=== PATIENT | female | born 1980 | race Caucasian/White ===

== ENCOUNTER → 2019-11-16 08:31 | Outpatient (BNVA) | payer BC, SELFPAY | PROVIDERS: Family Provider Nurse Practitioner Family; Visit Provider Obstetrics & Gynecology | DX: Z32.01 Encounter for pregnancy test, result positive (principal) | CPT/HCPCS: 81025 ==

== ENCOUNTER → 2019-12-26 09:18 | Outpatient (BNVA) | payer BC, MEDICAID, SELFPAY | PROVIDERS: Family Provider Nurse Practitioner Family; Visit Provider Obstetrics & Gynecology | DX: O09.899 Supervision of other high risk pregnancies, unspecified trimester (principal); Z3A.10 10 weeks gestation of pregnancy; O10.919 Unspecified pre-existing hypertension complicating pregnancy, unspecified trimester; O99.331 Smoking (tobacco) complicating pregnancy, first trimester; O09.521 Supervision of elderly multigravida, first trimester | CPT/HCPCS: 80053; 80307; 83036; 84315; 85027; 86592; 86762; 86803; 86850; 86900; 87340; 87806 ==

== ENCOUNTER → 2020-01-06 14:35 | Outpatient (BNVA) | payer BC, MEDICAID, SELFPAY | PROVIDERS: Family Provider Nurse Practitioner Family; Visit Provider Obstetrics & Gynecology | DX: O09.91 Supervision of high risk pregnancy, unspecified, first trimester (principal); O09.899 Supervision of other high risk pregnancies, unspecified trimester; O28.0 Abnormal hematological finding on antenatal screening of mother; O28.5 Abnormal chromosomal and genetic finding on antenatal screening of mother | CPT/HCPCS: 84315; 87491; 87591; 88175 ==

== ENCOUNTER → 2020-02-09 00:01 | Outpatient (BNVA) | payer BC, MEDICAID, SELFPAY | PROVIDERS: Family Provider Nurse Practitioner Family; Visit Provider Nurse Practitioner Women's Health | DX: O10.919 Unspecified pre-existing hypertension complicating pregnancy, unspecified trimester (principal) | CPT/HCPCS: 84156 ==

== ENCOUNTER → 2020-03-07 16:14 | Outpatient (BNVA) | payer BC, MEDICAID, SELFPAY | PROVIDERS: Family Provider Nurse Practitioner Family; Visit Provider Obstetrics & Gynecology | DX: Z36.89 Encounter for other specified antenatal screening (principal) | CPT/HCPCS: 76805 ==

== ENCOUNTER → 2020-03-20 07:50 | Outpatient (BNVA) | payer BC, MEDICAID, SELFPAY | PROVIDERS: Family Provider Nurse Practitioner Family; Visit Provider Obstetrics & Gynecology | DX: O09.899 Supervision of other high risk pregnancies, unspecified trimester (principal) | CPT/HCPCS: 81000 ==

== ENCOUNTER 2020-03-21 16:00 | Outpatient (CLI) | payer BC, MEDICAID, SELFPAY ==
[2020-03-21 16:30] VITALS: RESP 20; TEMP 36.3; BMI 37.3
[2020-03-21] MEDS: terbutaline 1 mg/mL INJ 0.25 MG SUBCUT (16:48)
[2020-03-21 16:51] LABS: Bilirubin Urine Neg (Negative); Blood Urine Neg (Negative); Glucose Urine UA Norm (Normal); Ketones Urine Negative (Negative); Leukocyte Esterase Urine Negative (Negative); Nitrate Urine Negative (Negative); Protein Urine Neg (Negative); Urine Appearance SL Hazy (CLEAR); Urine Color Yellow (Yellow); Urobilinogen Urine Neg (Negative); pH Urine 6 (5-7)
[2020-03-21 16:52] LABS: Add Urine Culture? No; Bacteria Urine 2+ /hpf; Mucus Urine 1+ /hpf; WBC Urine 0-4 /hpf (0-5)
[2020-03-21 17:15] VITALS: BP 139/69; RESP 20; TEMP 36.3
== END 2020-03-21 17:20 | disposition home or self-care (01) ==
LOC: OPOB 16:13 → OBGYN 17:14
PROVIDERS: PCP Pharmacist; Visit Provider Obstetrics & Gynecology
DX: O26.899 Other specified pregnancy related conditions, unspecified trimester (principal); Z3A.00 Weeks of gestation of pregnancy not specified; R10.9 Unspecified abdominal pain
CPT/HCPCS: 81001; 87086; 96372; 99211; J3105

== ENCOUNTER → 2020-03-22 08:44 | Outpatient (BNVA) | payer BC, MEDICAID, SELFPAY | PROVIDERS: Family Provider Nurse Practitioner Family; Visit Provider Psychiatry & Neurology Psychiatry | DX: F33.1 Major depressive disorder, recurrent, moderate (principal); F41.1 Generalized anxiety disorder; F17.200 Nicotine dependence, unspecified, uncomplicated | CPT/HCPCS: 99204 ==

== ENCOUNTER → 2020-04-03 07:56 | Outpatient (BNVA) | payer BC, MEDICAID, SELFPAY | PROVIDERS: Family Provider Nurse Practitioner Family; Visit Provider Obstetrics & Gynecology | DX: O09.899 Supervision of other high risk pregnancies, unspecified trimester (principal) | CPT/HCPCS: 82950; 84315 ==

== ENCOUNTER → 2020-04-19 08:16 | Outpatient (BNVA) | payer BC, MEDICAID, SELFPAY | PROVIDERS: Family Provider Nurse Practitioner Family; Visit Provider Psychiatry & Neurology Psychiatry | DX: F41.1 Generalized anxiety disorder (principal); F33.1 Major depressive disorder, recurrent, moderate | CPT/HCPCS: 99213 ==

== ENCOUNTER → 2020-04-20 08:24 | Outpatient (BNVA) | payer BC, MEDICAID, SELFPAY | PROVIDERS: Family Provider Nurse Practitioner Family; Visit Provider Obstetrics & Gynecology | DX: R73.09 Other abnormal glucose (principal) | CPT/HCPCS: 82951; 82952 ==

== ENCOUNTER → 2020-04-24 08:55 | Outpatient (BNVA) | payer BC, MEDICAID, SELFPAY | PROVIDERS: Family Provider Nurse Practitioner Family; Visit Provider Obstetrics & Gynecology | DX: O09.899 Supervision of other high risk pregnancies, unspecified trimester (principal); Z3A.00 Weeks of gestation of pregnancy not specified | CPT/HCPCS: 84315; 85027 ==

== ENCOUNTER → 2020-05-04 09:55 | Outpatient (BNVA) | payer BC, MEDICAID, SELFPAY | PROVIDERS: Family Provider Nurse Practitioner Family; Visit Provider Obstetrics & Gynecology | DX: O09.899 Supervision of other high risk pregnancies, unspecified trimester (principal); O28.0 Abnormal hematological finding on antenatal screening of mother; O24.419 Gestational diabetes mellitus in pregnancy, unspecified control; R05 Cough | CPT/HCPCS: 84315; 87635 ==

== ENCOUNTER 2020-05-20 16:41 | Outpatient (CLI) | payer BC, MEDICAID, SELFPAY ==
[2020-05-20] VITALS (31 sets, daily range): BP systolic 0–150; BP diastolic 0–83; PULSE 77–101; RESP 20; TEMP 36.8; O2SAT 96–98; BMI 40.1
[2020-05-20 17:52] LABS: Nitrazine Paper, PH Negative
[2020-05-20] MEDS: NIFEdipine ER (24 hr) 30 mg Tablet PO (18:39)
[2020-05-20 19:08] LABS: Actim Prom Negative
[2020-05-20] MEDS: terbutaline 1 mg/mL INJ 0.25 MG SUBCUT ×2 (19:44→20:46)
[2020-05-20 20:09] LABS: Bilirubin Urine Neg (Negative); Blood Urine Neg (Negative); Glucose Urine UA Norm (Normal); Ketones Urine Negative (Negative); Leukocyte Esterase Urine Negative (Negative); Nitrate Urine Negative (Negative); Protein Urine Neg (Negative); Urine Appearance Clear (CLEAR); Urine Color Straw (Yellow); Urobilinogen Urine Norm (Negative)
[2020-05-20 20:15] LABS: Amorphous Sediment Urine 2+ /hpf; Bacteria Urine 1+ /hpf; Mucus Urine TRACE /hpf; Squamous Epithelial Cell Urine 0-4 /hpf (0-5)
[2020-05-20 20:16] LABS: Add Urine Culture? No
[2020-05-20] MEDS: acetaminophen 500 mg Tablet 1000 MG PO (20:46)
== END 2020-05-20 21:36 | disposition home or self-care (01) ==
LOC: OPOB 17:01 → OBGYN 17:03
PROVIDERS: Family Provider Nurse Practitioner Family; Visit Provider Obstetrics & Gynecology
DX: O26.899 Other specified pregnancy related conditions, unspecified trimester (principal); R10.9 Unspecified abdominal pain
CPT/HCPCS: 59025; 81001; 83986; 84112; 96372; 99211; J3105

== ENCOUNTER → 2020-06-04 15:42 | Outpatient (BNVA) | payer BC, MEDICAID, SELFPAY | PROVIDERS: Family Provider Nurse Practitioner Family; Visit Provider Obstetrics & Gynecology | DX: O09.893 Supervision of other high risk pregnancies, third trimester (principal); O28.0 Abnormal hematological finding on antenatal screening of mother; O24.410 Gestational diabetes mellitus in pregnancy, diet controlled; Z3A.33 33 weeks gestation of pregnancy | CPT/HCPCS: 76815; 84315 ==

== ENCOUNTER → 2020-06-05 16:07 | Outpatient (BNVA) | payer BC, MEDICAID, SELFPAY | PROVIDERS: Family Provider Nurse Practitioner Family; Visit Provider Emergency Medicine | DX: Z20.828 Contact with and (suspected) exposure to other viral communicable diseases (principal) | CPT/HCPCS: 87635 ==

== ENCOUNTER 2020-06-09 19:18 | Outpatient (CLI) | payer BC, MEDICAID, SELFPAY ==
[2020-06-09] VITALS (9 sets, daily range): BP systolic 124–155; BP diastolic 70–85; PULSE 80–92; RESP 16; BMI 40.0
[2020-06-09] MEDS: NIFEdipine 10 mg Capsule 20 MG PO (20:30)
[2020-06-09 22:17] LABS: Add Urine Microscopic? YES; Bilirubin Urine Neg (Negative); Blood Urine Neg (Negative); Glucose Urine UA Norm (Normal); Ketones Urine Negative (Negative); Leukocyte Esterase Urine Negative (Negative); Nitrate Urine Negative (Negative); Protein Urine Neg (Negative); Urine Appearance Turbid (CLEAR); Urine Color Yellow (Yellow); Urobilinogen Urine Norm (Negative); pH Urine 5 (5-7)
[2020-06-09 22:22] LABS: Bacteria Urine TRACE /hpf; RBC Urine 0-4 /hpf (0-2); Renal Epithelial Cells Urine 0-4 /hpf; Squamous Epithelial Cell Urine 25-40 /hpf (0-5); WBC Urine 0-4 /hpf (0-5)
[2020-06-09 22:23] LABS: Add Urine Culture? No
== END 2020-06-09 22:37 | disposition home or self-care (01) ==
LOC: OPOB 19:19 → OBGYN 22:26
PROVIDERS: Family Provider Nurse Practitioner Family; Visit Provider Obstetrics & Gynecology
DX: O26.899 Other specified pregnancy related conditions, unspecified trimester (principal); Z3A.00 Weeks of gestation of pregnancy not specified; R10.9 Unspecified abdominal pain
CPT/HCPCS: 36415; 59025; 81001; 99211

== ENCOUNTER → 2020-06-12 07:58 | Outpatient (BNVA) | payer BC, MEDICAID, SELFPAY | PROVIDERS: Family Provider Nurse Practitioner Family; Visit Provider Obstetrics & Gynecology | DX: O09.899 Supervision of other high risk pregnancies, unspecified trimester (principal); O28.0 Abnormal hematological finding on antenatal screening of mother; O24.410 Gestational diabetes mellitus in pregnancy, diet controlled; O40.3XX0 Polyhydramnios, third trimester, not applicable or unspecified; Z3A.00 Weeks of gestation of pregnancy not specified | CPT/HCPCS: 81000 ==

== ENCOUNTER → 2020-06-14 08:22 | Outpatient (BNVA) | payer BC, MEDICAID, SELFPAY | PROVIDERS: Family Provider Nurse Practitioner Family; Visit Provider Psychiatry & Neurology Psychiatry | DX: F33.1 Major depressive disorder, recurrent, moderate (principal); F41.1 Generalized anxiety disorder; F17.200 Nicotine dependence, unspecified, uncomplicated | CPT/HCPCS: 99213 ==

== ENCOUNTER 2020-06-16 08:30 | Inpatient (IN) | payer BC, MEDICAID, SELFPAY ==
[2020-06-16] VITALS (56 sets, daily range): BP systolic 0–181; BP diastolic 0–98; PULSE 71–113; RESP 17; TEMP 36.7–36.9; O2SAT 96–97; BMI 40.1
--- NOTE | 2020-06-16 08:00 | USR_ITS ---
PROCEDURE INFORMATION: Exam: US , Limited Exam date and time: 06/16/2020 8:03 AM Age: 39 years old Clinical indication: Lmp or gestational age (in weeks): 35 wks 4 days; Other: Unable to find heart tones; ; Patient HX: Trisomy 18 fetus; Additional info: Unable to find heartones TECHNIQUE: Imaging protocol: Real-time ultrasound of the maternal uterus with image documentation. Exam focused on the clinical indication. COMPARISON: US OB limited [id number] 06/04/2020 3:47 PM FINDINGS: Gestation: Intrauterine gestation. heart rate: No heart motion is seen. Presentation: There is a single intrauterine fetus in the vertex position. Placenta: The placenta is present in the posterior fundus. US/US OB limited [id number] IMPRESSION: There is a single intrauterine fetus with no heart motion which is consistent with demise.
--- NOTE | 2020-06-16 09:30 | PC.NURSE ---
Pt and all belonging transferred to room 209 to proceed with the induction process. Pt oriented to room, belongings placed in the closet and made sure pt was comfortable. Pt denies any wants or needs at this time, will continue to monitor.
[2020-06-16] MEDS: acetaminophen 325 mg Tablet 650 MG PO (10:15)
[2020-06-16] MEDS: miSOPROStol 100 mcg tablet 25 MCG VAGINAL ×2 (10:17→23:18)
[2020-06-16 10:43] LABS: Basophils % 0.4 %; Eosinophils # 0.1 10^3/uL (0.0-0.8); Eosinophils % 0.6 %; Hematocrit 38.3 % (37.0-47.0); Lymphocytes # 1.9 10^3/uL (0.8-4.8); Lymphocytes % 17.7 %; Mean Corpuscular HGB Conc 33.9 g/dL (30.0-36.0); Mean Corpuscular Hemoglobin 30.4 pg (28.0-34.0); Mean Corpuscular Volume 89.7 fL (81-99); Mean Platelet Volume 10.9 fL (7.4-10.4); Monocytes # 0.6 10^3/uL (0.2-0.9); Monocytes % 5.2 %; Neutrophils # 8.25 10^3/uL (1.8-7.7); Neutrophils % 75.9 %; Nucleated Red Blood Cells % 0 %; Platelet Count 202 10^3/cmm (130-400); Red Blood Count 4.27 10^6/uL (4.1-5.3); Red Cell Distribution Width 13.2 % (12.1-15.1); White Blood Count 10.9 10^3/uL (4.0-10.0)
[2020-06-16] MEDS: labetalol 5 mg/mL SDV 20mL 20 MG IVP (12:02)
[2020-06-16 12:34] LABS: Alanine Aminotransferase 16 U/L (0-33); Albumin Level 3.5 g/dL (3.5-5.2); Alkaline Phosphatase 127 IU/L (35-105); Anion Gap 15.9 (5-19); Aspartate Amino Transferase 17 U/L (0-32); Blood Urea Nitrogen 5 mg/dL (6-20); Calcium 8.9 mg/dL (8.5-10.5); Carbon Dioxide 20 mmol/L (22-29); Chloride 103 mmol/L (98-107); Glomerular Filtration Rate 178.6 mL/min (90-130); Glucose 111 mg/dL (65-115); Osmolality Calculated 278 mOsm/kg (285-295); Potassium 3.9 mmol/L (3.5-5.1); Sodium 135 mmol/L (136-145); Total Bilirubin 0.2 mg/dL (0.15-1.2); Total Protein 6.5 g/dL (6.6-8.7); Uric Acid 3.3 mg/dL (2.4-5.7)
[2020-06-16 12:59] LABS: Urine Creatinine 103 mg/dL (28-217); Urine Protein Random 9 mg/dL
[2020-06-16 13:01] LABS: Add Urine Microscopic? NO
[2020-06-16] MEDS: labetalol 5 mg/mL SDV 20mL 40 MG IVP ×2 (13:08→18:13)
[2020-06-16 13:09] LABS: Bilirubin Urine Neg (Negative); Blood Urine Neg (Negative); Glucose Urine UA Norm (Normal); Ketones Urine Negative (Negative); Leukocyte Esterase Urine Negative (Negative); Nitrate Urine Negative (Negative); Protein Urine Neg (Negative); Specific Gravity, Urine 1.015 (1.005-1.030); Urine Appearance Clear (CLEAR); Urine Color Yellow (Yellow); Urobilinogen Urine 1 mg/dL (Negative); pH Urine 6.5 (5-7)
[2020-06-16 13:13] LABS: UPRO/UCREAT Ratio 0.09 mg/mg CR
[2020-06-16] MEDS: labetalol 200 mg Tablet 50 MG PO (14:27)
[2020-06-16] MEDS: dextrose 5%-lactated ringers 1,000 ML 125 ML IV (14:35)
[2020-06-16] MEDS: oxytocin 30 UNIT/500 ML BAG IV (14:36)
[2020-06-16] MEDS: fentaNYL 50 mcg/mL INJ 2mL IV (18:12)
[2020-06-16] MEDS: labetalol 5 mg/mL SDV 20mL 60 MG IVP (19:06)
--- NOTE | 2020-06-16 19:48 | PM.OBGYHP ---
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 Vo is 39-year-old 2 para 1-0-0-1 at 35 weeks and 4 days who presented to labor and delivery on 06/16/2020 with reports of no movement for the last 3 days. course was complicated by abnormal chromosomal testing for trisomy 18 and patient has been followed up with maternal- medicine with the plan for her to be induced in [place] at 37 weeks. She had been seen 2 days before and everything checked out normal and it was known that the fetus had multiple congenital anomalies. She was also for gestational diabetic managed with Metformin and chronic hypertensive on labetalol. When she presented to labor and delivery on 06/16/2020 bedside ultrasound did not see any activity and Doppler was unable to pick this up as well. Ultrasound officially was done and was consistent with absent cardiac activity on color flow Doppler and M-mode and diagnosis of intrauterine was made. Patient was counseled and she was kind of prepared for this as this had always been a possibility knowing that she had a fetus with trisomy 18. Present Details : 2 Para: 1 Date of Last Menstrual Period: 10/11/19 Calculated Date of Delivery: 07/17/20 Gestational Age Based on Last Menstrual Period: 36 Labs Rubella: Immune RPR: Negative GBS: Unknown Review of Systems General: Reports: 10 or more systems reviewed and unremarkable except in HPI and below Const: Denies: fever(s), chills, change in appetite, change in weight, fatigue, malaise or change in sleep pattern Eyes: Denies: change in vision, eye discomfort, eye discharge or seeing flashes ENMT: Denies: throat pain, odynophagia, hoarseness, bleeding gums, ear discharge, nasal discharge or nasal congestion Card: Denies: chest pain, irregular heart rhythm, edema, swelling of feet/ankles, dyspnea on exertion or leg pain with exertion Resp: Denies: dyspnea, productive cough, wheezing or chest congestion GI: Denies: abdominal pain, nausea, vomiting, heartburn, diarrhea, constipation, change in bowel habits or hematochezia : Denies: flank pain, dysuria, urinary frequency, urinary urgency, urinary incontinence, genital lesions, vaginal odor, vaginal bleeding, vaginal discharge, dysmenorrhea, change in menstrual flow, prolapse symptoms, dyspareunia or sexual dysfunction Musc: Denies: neck pain, back pain, joint pain, joint swelling or muscle cramps Skin/Breast: Denies: rash, pruritus, breast tenderness, nipple discharge or breast mass Neuro: Denies: headache(s), numbness in extremities or seizure-like activity Psych: Denies: anxiety, depression, mood swings or change in appetite Endo: Denies: cold intolerance, flushing, hot flashes or change in body appearance Dany/Lymph: Denies: easy bruising, easy bleeding or enlarged lymph nodes All/Imm: Denies: urticaria, tongue swelling, acute wheezing or itchy eyes Medications/Allergies Home Medications Medication Instructions Recorded Confirmed Last Taken Type prenat.vits,faith,bxz-wfaj-bywxf 1 tab PO DAILY 12/13/19 06/20/20 06/14/20 07:00 History docusate sodium 100 mg PO BID PRN #30 cap 06/18/20 06/20/20 Unknown Rx ibuprofen 800 mg PO Q8H #30 tab 06/18/20 06/20/20 Unknown Rx alprazolam 0.25 mg tablet 0.25 mg PO .every 12 hours PRN #20 06/20/20 06/20/20 Unknown Rx tab labetalol 100 mg tablet 50 mg PO DAILY tab 06/20/20 06/20/20 Unknown History sertraline 50 mg tablet 100 mg PO DAILY #30 tab 06/20/20 06/20/20 Unknown Rx Allergies Allergy/AdvReac Type Severity Reaction Status Date / Time No Known Allergies Allergy Verified 06/13/20 12:10 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 PFSH: Medical History Hypertension Surgical History No pertinent past surgical history Family History Grandmother Diabetes Paternal grandmother Maternal grandmother Heart disease Paternal grandmother Grandfather Diabetes Paternal grandfather Maternal grandfather Heart disease Paternal grandfather Father Hypertension Heart disease Hyperlipidemia Family/Other Heart disease Maternal uncle Denies family history of Colon cancer Ovarian cancer Breast cancer Family history of thyroid problem Uterine cancer Stroke Social History Smoking and tobacco status: current every day smoker cigarettes Packs smoked per day: 0.5 Years cigarettes smoked: 20 Quit status (tobacco): has tried quititng Number of times tried to quit tobacco: 2 Second hand smoke exposure: No Alcohol intake: never Other Female Reproductive History: Hx Age of Menarche: 12 Duration of menses: 3-5 days Date of Last Menstrual Period: 10/11/19 Cycle Length: every 28-30 days Menstrual flow: normal/abnormal: normal History History History 2 Term 1 Miscarriages/Ectopic 0 1 Living Children 1 Other History: 1--->[07/07/2013] 8# 20--vaginal, epidural, 39 weeks, was induced a week early because the doctor was concerned about her BP, [facility] [place] [place] baby girl, Zakia 2---> IUFD at 35 weeks-baby boy Bonilla with trisomy 18 Care LAURA Calculator Estimated Delivery Date Method Current WG Current Estimate 07/17/20 LMP (Certain) 36w 2d Expected Delivery Route/Plan Vaginal Specific Issues/Plans AMA CHRONIC HTN SMOKER Vitals/I&O/Wt Last Vital Signs Temp 98.4 F 06/16/20 18:30 Pulse 80 06/16/20 19:39 Resp 17 06/16/20 18:12 BP 154/76 06/16/20 19:39 Pulse Ox 96 06/16/20 08:26 06/16/20 06/16/20 06/16/20 06:59 14:59 22:59 Intake Total 0.233 / 0.233 19.4 / 19.633 Balance 0.233 / 0.233 ..633 Weight last 48 hrs Weight 249 lb Physical Exam Narrative: EXAM NARRATIVE: General: well developed, well nourished, upset with the news Neuro/Psych: alert, oriented to time, place and person. Neck: No thyromegaly Heart: S1-S2 heard, regular rate and rhythm. Lungs: Clear to auscultation bilaterally. Breast: Deferred Abdomen: Soft, obese, gravid, nontender Legs: No pedal edema no calf tenderness. Negative Homans sign Back: No CVA tenderness Skin: Normal over abdomen External genitalia: Appears normal, no lesions, normal hair Urethral meatus: Normal size, normal location Urethra: Nontender, no masses Bladder: Nontender Vagina: Appears normal Cervix: Closed thick and high Uterus: Gravid Adnexa: Not palpable Perineum/anus: Intact Rectum: Deferred Data : 06/18/20 04:56 06/16/20 11:50 A&P Assessment and plan (1) Intrauterine in : -Discussed with Ms. Vo that there was no heartbeat consistent with demise. She is understandably upset but was expecting the possibility of this given that the fetus has trisomy 18. Discussed I would recommend delivery with induction. Discussed that her cervix is unfavorable and will likely require long induction. Her blood pressures a little higher now because she is upset and we will do labs to rule out preeclampsia as well. We will plan on starting induction with Cytotec and switching to Pitocin once cervix is more favorable. Induction process reviewed with patient. Discussed possibility of although this is going to be done only if there is no other choice. -Discussed pain management during the induction process. Emotional support provided. -Admit patient to labor and delivery and begin induction. Status: Acute Attestations Medical Necessity Statement*: Needs to stay to deliver and recover from delivery-probably 3-4 midnights Coding Level of Care Code Acute Public Service Representative for Seth Bernal Diagnoses Intrauterine in [id number]
[2020-06-17] VITALS (101 sets, daily range): BP systolic 0–203; BP diastolic 0–104; PULSE 72–110; RESP 17–18; TEMP 36.6–37.7; O2SAT 96–97
[2020-06-17] MEDS: miSOPROStol 100 mcg tablet 25 MCG VAGINAL (03:30)
[2020-06-17] MEDS: fentaNYL 50 mcg/mL INJ 2mL IV ×3 (03:33→09:28)
[2020-06-17] MEDS: labetalol 200 mg Tablet 50 MG PO (08:11)
[2020-06-17] MEDS: ondansetron 2 mg/ML SDV 2 mL 4 MG IVP (09:22)
[2020-06-17] MEDS: lactated ringers 1,000 ML 999 ML IV ×2 (09:22→10:40)
--- NOTE | 2020-06-17 10:30 | P.ANESASSM_ITS ---
Pre-Anesthetic Assessment Pre-Anesthetic Assessment: Height/Weight: Height 1.68 m Weight 112.945 kg Temp Pulse Resp BP Pulse Ox 97.9 F 86 17 154/80 96 06/17/20 07:20 06/17/20 10:54 06/17/20 09:28 06/17/20 10:54 06/17/20 10:49 Preop Diagnosis: IUP Proposed Procedure: labor epidural Was Beta Daonis taken within 24 hours: Yes Social: Social History: Tobacco Exam: Pre-Anes Outpt Exam: alert, oriented x 3, clear to auscultation bilaterally and regular rate & rhythm Airway: Submandibular: WNL Cervical ROM: WNL MP: 2 History/ROS: No significant history except as noted Pulmonary: Pulmonary: None reported CV/HEM: CV/HEM: HTN : : None reported Hepatic: Hepatic: None reported GI: GI: GERD Metabolic: Metabolic: DM ( induced) Musc/skel: Musc/skel: None reported Neuropsych: Neuropsych: Anxiety and Depression Anesthetic Plan: ASA status: 2 Anesthesia: Anesthesia Evaluation Risk of > 500 ml blood loss (7ml/kg in children): No Meds/Allergies Current Medications: Current Medications Generic Name Dose Route Start Last Admin Trade Name Freq PRN Reason Stop Dose Admin Acetaminophen 650 mg 06/16/20 08:51 06/16/20 10:15 Acetaminophen 32 5 Mg Tablet PO 650 mg Q6H PRN Administration Mild pain or temp > 100.4 Fentanyl 25 - 100 mcg 06/16/20 08:51 06/17/20 09:28 Fentanyl 50 Mcg/ Ml Inj 2ml IV 100 mcg Q1H PRN Administration SEVERE PAIN Dextrose/Lactated Ringer's 1,000 mls @ 125 m ls/hr 06/16/20 09:00 06/16/20 14:35 Dextrose 5%-Lact ated Ringers IV 125 mls/hr .Q8H CONRAD Administration Lactated Ringer's 1,000 mls @ 999 m ls/hr 06/16/20 08:51 06/17/20 10:40 Lactated Ringers IV 999 mls/hr .Q1H1M PRN Administration See label comment s Oxytocin 30 unit in 500 ml s @ 1 mls/hr 06/16/20 14:15 06/17/20 10:12 Pitocin IV 8 milliunit/min .Q24H CONRAD 8 mls/hr Titration Protocol 1 MILLIUNIT/MIN Labetalol HCl 20 mg 06/16/20 11:47 06/16/20 12:02 Labetalol 5 Mg/M l Sdv 20ml IVP 20 mg PRN PRN Administration HYPERTENSION Protocol Labetalol HCl 40 mg 06/16/20 11:47 06/16/20 18:13 Labetalol 5 Mg/M l Sdv 20ml IVP 40 mg PRN PRN Administration HYPERTENSION Protocol Misoprostol 25 mcg 06/16/20 23:08 06/17/20 03:30 Misoprostol 100 Mcg Tablet VAGINAL 25 mcg Q4H PRN Administration induction Ondansetron HCl 4 mg 06/16/20 08:51 06/17/20 09:22 Ondansetron 2 Mg /Ml Sdv 2 Ml IVP 4 mg Q4H PRN Administration NAUSEA AND VOMITI NG PFSH Anesthesia PFSH: Medical History Hypertension Surgical History No pertinent past surgical history Family History Grandmother Diabetes Paternal grandmother Maternal grandmother Heart disease Paternal grandmother Grandfather Diabetes Paternal grandfather Maternal grandfather Heart disease Paternal grandfather Father Hypertension Heart disease Hyperlipidemia Family/Other Heart disease Maternal uncle Denies family history of Colon cancer Ovarian cancer Breast cancer Family history of thyroid problem Uterine cancer Stroke Social History (Updated 06/12/20 @ 08:04 by Ginette Quezada RN) Smoking and tobacco status: current every day smoker cigarettes Packs smoked per day: 0.5 Years cigarettes smoked: 20 Quit status (tobacco): has tried quititng Number of times tried to quit tobacco: 2 Second hand smoke exposure: No Alcohol intake: never Female Reproductive History: Date of last menstrual period: 10/11/19 : 2 Para: 1 Spontaneous abortions: No Data Anesthesia CBC & Chem 7: 06/16/20 09:35 06/16/20 11:50 Other Labs: Laboratory Results - last 48 hr 06/16/20 06/16/20 06/16/20 09:35 09:35 11:50 WBC 10.9 H RBC 4.27 Hgb 13.0 Hct 38.3 MCV 89.7 MCH 30.4 MCHC 33.9 RDW 13.2 Plt Count 202 MPV 10.9 H Neut % (Auto) 75.9 Lymph % (Auto) 17.7 [place] % (Auto) 5.2 Eos % (Auto) 0.6 Baso % (Auto) 0.4 Neut # (Auto) 8.25 H Lymph # (Auto) 1.9 [place] # (Auto) 0.6 Eos # (Auto) 0.1 Baso # (Auto) 0.0 Nucleated RBC % (auto) 0 Nucleated RBCs # 0.0 Sodium Potassium Chloride Carbon Dioxide Anion Gap BUN Creatinine GFR Calculation Glucose Calculated Osmolality Uric Acid Calcium Total Bilirubin AST ALT Alkaline Phosphatase Total Protein Albumin Globulin Urine Color Urine Appearance Urine pH Ur Specific [place] Urine Protein Urine Glucose (UA) Urine Ketones Urine Blood Urine Nitrate Urine Bilirubin Urine Urobilinogen Ur Leukocyte Esterase U Random Total Protein 9 Urine Creatinine 103 Protein/Creatinin Ratio 0.09 Blood Type O Positive Rho(D) Type Positive Antibody Screen Negative 06/16/20 06/16/20 11:50 11:50 WBC RBC Hgb Hct MCV MCH MCHC RDW Plt Count MPV Neut % (Auto) Lymph % (Auto) [place] % (Auto) Eos % (Auto) Baso % (Auto) Neut # (Auto) Lymph # (Auto) [place] # (Auto) Eos # (Auto) Baso # (Auto) Nucleated RBC % (auto) Nucleated RBCs # Sodium 135 L Potassium 3.9 Chloride 103 Carbon Dioxide 20 L Anion Gap 15.9 BUN 5 L Creatinine 0.4 L GFR Calculation 178.6 H Glucose 111 Calculated Osmolality 278 L Uric Acid 3.3 Calcium 8.9 Total Bilirubin 0.2 AST 17 ALT 16 Alkaline Phosphatase 127 H Total Protein 6.5 L Albumin 3.5 Globulin 3.0 Urine Color Yellow Urine Appearance Clear Urine pH 6.5 Ur Specific [place] 1.015 Urine Protein Neg Urine Glucose (UA) Norm Urine Ketones Negative Urine Blood Neg Urine Nitrate Negative Urine Bilirubin Neg Urine Urobilinogen 1 H Ur Leukocyte Esterase Negative U Random Total Protein Urine Creatinine Protein/Creatinin Ratio Blood Type Rho(D) Type Antibody Screen Cardiac Studies: No Data to Display
--- NOTE | 2020-06-17 11:07 | ANES.PROC ---
Anesthesia Procedures Procedure/Date: 06/17/20 Epidural: Time Out Performed: Yes Consents Signed: Procedure Consent Consent: requested by attending/covering physician Lumbar Level: L3-L4 Epidural procedure: sterile prep of area, 1% lidocaine to numb the area, 18 g needle, negative for paresthesia passed, neg for paresthesia, test dose given, 1.5% xylocaine 1:200k epi (5ml), placed PCEA, no systemic response, sterile dressing applied, L.U.D. no apparent complications and 0.2% Ropiavacaine @ mls/hr (13)
--- NOTE | 2020-06-17 17:23 | PM.DELIVERY ---
Delivery Note: Date of delivery: June 17, 2020 - PRE-DELIVERY DIAGNOSIS: 39-year-old 2 para 1-0-0-1 at 35 weeks and 4 days gestation Intrauterine Advanced maternal age Fetus with trisomy 18 Gestational diabetes Polyhydramnios Anxiety and depression on medication Chronic hypertension on labetalol POST-DELIVERY DIAGNOSIS: Vaginal delivery on 06/17/2020 Chronic hypertension on medication Anxiety and depression PROCEDURE: Vaginal delivery on 06/17/2020 ANESTHESIA: Epidural anesthesia DELIVERING PHYSICIAN: Johann Baca FACOG PRE-DELIVERY COURSE: Ms. Vo is 39-year-old 2 para 1-0-0-1 at 35 weeks and 4 days who presented to labor and delivery on 06/16/2020 with reports of no movement for the last 3 days. course was complicated by abnormal chromosomal testing for trisomy 18 and patient has been followed up with maternal- medicine with the plan for her to be induced in [place] at 37 weeks. She had been seen 2 days before and everything checked out normal and it was known that the fetus had multiple congenital anomalies. She was also for gestational diabetic managed with Metformin and chronic hypertensive on labetalol. When she presented to labor and delivery on 06/16/2020 bedside ultrasound did not see any activity and Doppler was unable to pick this up as well. Ultrasound officially was done and was consistent with absent cardiac activity on color flow Doppler and M-mode and diagnosis of intrauterine was made. Patient was counseled and she was kind of prepared for this as this had always been a possibility knowing that she had a fetus with trisomy 18. Cervix was unfavorable closed thick and high and fetus was in cephalic presentation. Induction was started with Cytotec and she received 2 doses of Cytotec. She made minimal cervical change to tight 2 cm, 30% effaced. She was started on Pitocin at about 3 PM which was titrated to maximum of 15 mIU and during this time she was very uncomfortable however declined any pain medication to be given multiple doses of IV labetalol to help with pain relief. Pitocin was turned off at 8 PM as she made minimal to no cervical change. She was given a therapeutic rest. She seemed to be coping well thus far. Induction was started again at 11 PM on 06/16/2020 and she received 2 more doses of Cytotec overnight and made cervical change to 2 cm, 60% soft and -4 station. Pitocin was started at 7:30 AM this morning and titrated to maximum of 15 mIU and with this she started to make cervical change. She was uncomfortable and epidural was placed as fentanyl did not help much with her pain. At about 3 PM she was noted to be 3 to 4 cm, 80% and -4 station. Artificial rupture of membranes was performed at about 3:20 with blood-tinged fluid at which time she was 5 cm, 80% and -4 station. She progressed rapidly and about an hour later was fully dilated and +2 station feeling pressure wanting to push. DELIVERY NOTE: She was set up in lithotomy position and was pushing effectively. She was noted to be +3 station and continued pushing well. The head delivered in OA position, no nuchal cord was present. The shoulders and rest of the body followed with her next push the baby was placed on mother's abdomen and she was allowed to cut the cord. There were no signs of life and the skin was macerated and peeling. Obviously noted was bilateral cleft lip deformities. The placenta delivered spontaneously intact with membranes and was discarded. The fundus was noted to be firm and well contracted. The vagina and cervix were inspected and no cervical or sulcal lacerations were noted. The perineum was intact Baby boyBonilla born at ----on 06/17/2020 with 0/0, weighing 4 pounds 1.5 ounces, 1860 grams, 17 inches long. Placenta was delivered spontaneously intact with membranes and was sent to pathology. Cotyledons were intact , centrally inserted umbilical cord with 3 vessels noted. Charlton's jelly was excessive and cord was friable. Estimated blood loss 200 mL. Complications-none. Coding Level of Care Code Acute Cellular Plastics Cutter for Seth Bernal
[2020-06-17] MEDS: docusate sodium 100 mg Capsule PO (19:00)
[2020-06-17] MEDS: HYDROcodone-acetaminophen 5-325 mg Tablet PO (19:00)
[2020-06-17] MEDS: ibuprofen 800 mg tablet PO (20:03)
[2020-06-17] MEDS: labetalol 5 mg/mL SDV 20mL 20 MG IVP (20:03)
[2020-06-17] MEDS: labetalol 5 mg/mL SDV 20mL 40 MG IVP (20:39)
[2020-06-18] VITALS (9 sets, daily range): BP systolic 113–150; BP diastolic 58–84; PULSE 78–90; RESP 16–18; TEMP 36.4–36.9
[2020-06-18] MEDS: HYDROcodone-acetaminophen 5-325 mg Tablet PO (04:12)
[2020-06-18 05:07] LABS: Hematocrit 37.2 % (37.0-47.0); Hemoglobin 12.3 g/dL (11.5-15.3); Mean Corpuscular HGB Conc 33.1 g/dL (30.0-36.0); Mean Corpuscular Hemoglobin 30.5 pg (28.0-34.0); Mean Corpuscular Volume 92.3 fL (81-99); Mean Platelet Volume 10.5 fL (7.4-10.4); Platelet Count 179 10^3/cmm (130-400); Red Blood Count 4.03 10^6/uL (4.1-5.3); Red Cell Distribution Width 13.4 % (12.1-15.1); White Blood Count 11.7 10^3/uL (4.0-10.0)
[2020-06-18] MEDS: prenatal vitamin Capsule 1 CAP PO (10:08)
[2020-06-18] MEDS: ibuprofen 800 mg tablet PO (10:08)
[2020-06-18] MEDS: labetalol 200 mg Tablet 50 MG PO (10:09)
[2020-06-18] MEDS: docusate sodium 100 mg Capsule PO (10:09)
--- NOTE | 2020-06-18 14:27 | PM.DCS ---
Discharge Providers Date of Admission: 06/16/20 08:30 Date of Discharge: June 21, 2020 Attending Provider at Admission: Johann Smith MD Attending Provider at Discharge: Johann Smith MD Diagnoses at Discharge Discharge Diagnosis (1) Intrauterine in : Status: Acute Reason for Visit Reason for Visit: Absent Movement Brief History: PRE-DELIVERY DIAGNOSIS: 39-year-old 2 para 1-0-0-1 at 35 weeks and 4 days gestation Intrauterine Advanced maternal age Fetus with trisomy 18 Gestational diabetes Polyhydramnios Anxiety and depression on medication Chronic hypertension on labetalol POST-DELIVERY DIAGNOSIS: Vaginal delivery on 06/17/2020 Chronic hypertension on medication Anxiety and depression PROCEDURE: Vaginal delivery on 06/17/2020 ANESTHESIA: Epidural anesthesia DELIVERING PHYSICIAN: Johann Baca FACOG PRE-DELIVERY COURSE: Ms. Vo is 39-year-old 2 para 1-0-0-1 at 35 weeks and 4 days who presented to labor and delivery on 06/16/2020 with reports of no movement for the last 3 days. course was complicated by abnormal chromosomal testing for trisomy 18 and patient has been followed up with maternal- medicine with the plan for her to be induced in [place] at 37 weeks. She had been seen 2 days before and everything checked out normal and it was known that the fetus had multiple congenital anomalies. She was also for gestational diabetic managed with Metformin and chronic hypertensive on labetalol. When she presented to labor and delivery on 06/16/2020 bedside ultrasound did not see any activity and Doppler was unable to pick this up as well. Ultrasound officially was done and was consistent with absent cardiac activity on color flow Doppler and M-mode and diagnosis of intrauterine was made. Patient was counseled and she was kind of prepared for this as this had always been a possibility knowing that she had a fetus with trisomy 18. Cervix was unfavorable closed thick and high and fetus was in cephalic presentation. Induction was started with Cytotec and she received 2 doses of Cytotec. She made minimal cervical change to tight 2 cm, 30% effaced. She was started on Pitocin at about 3 PM which was titrated to maximum of 15 mIU and during this time she was very uncomfortable however declined any pain medication to be given multiple doses of IV labetalol to help with pain relief. Pitocin was turned off at 8 PM as she made minimal to no cervical change. She was given a therapeutic rest. She seemed to be coping well thus far. Induction was started again at 11 PM on 06/16/2020 and she received 2 more doses of Cytotec overnight and made cervical change to 2 cm, 60% soft and -4 station. Pitocin was started at 7:30 AM this morning and titrated to maximum of 15 mIU and with this she started to make cervical change. She was uncomfortable and epidural was placed as fentanyl did not help much with her pain. At about 3 PM she was noted to be 3 to 4 cm, 80% and -4 station. Artificial rupture of membranes was performed at about 3:20 with blood-tinged fluid at which time she was 5 cm, 80% and -4 station. She progressed rapidly and about an hour later was fully dilated and +2 station feeling pressure wanting to push. DELIVERY NOTE: She was set up in lithotomy position and was pushing effectively. She was noted to be +3 station and continued pushing well. The head delivered in OA position, no nuchal cord was present. The shoulders and rest of the body followed with her next push the baby was placed on mother's abdomen and she was allowed to cut the cord. There were no signs of life and the skin was macerated and peeling. Obviously noted was bilateral cleft lip deformities. The placenta delivered spontaneously intact with membranes and was discarded. The fundus was noted to be firm and well contracted. The vagina and cervix were inspected and no cervical or sulcal lacerations were noted. The perineum was intact Baby Bonilla constantino born at ----on 06/17/2020 with 0/0, weighing 4 pounds 1.5 ounces, 1860 grams, 17 inches long. Placenta was delivered spontaneously intact with membranes and was sent to pathology. Cotyledons were intact , centrally inserted umbilical cord with 3 vessels noted. [place]'s jelly was excessive and cord was friable. Estimated blood loss 200 mL. Complications-none. HOSPITAL COURSE: She underwent an uncomplicated vaginal delivery on 06/17/2020. She spent day 0 bonding with baby taking pictures and then she allowed the home to take the baby away. She declined autopsy or any testing as she states her testing was all done antepartum. She stated that she was doing okay. Her elevated blood pressure requiring IV labetalol and post day 0 as she was upset and crying. She was continued on p.o. labetalol while in the hospital. On day #1 she stated that she was doing okay and had minimal bleeding and pain and wanted to be discharged. She did not want to increase her depression medications and wanted to just continue the 50 mg of Zoloft as she felt that she had good family support and she denied suicidal/homicidal ideation. Blood pressure was not in the severe range and she was going to follow-up with me in 2 days with blood pressure log and to reassess mood. Emergency room precautions were reviewed. Prescription for Xanax provided to patient as needed. EXAM AT DISCHARGE: Gen.: No acute distress Heart: S1-S2 heard, regular rate and rhythm Lungs: Clear to auscultation bilaterally Abdomen: Soft, fundus firm below umbilicus, Legs: No calf tenderness, trace bilateral pitting pedal edema. CONDITION AT DISCHARGE: Stable Physical Exam Urinary Catheter Management^: Rubio: Cath Placed During This Visit: yes, but has since been removed by the nurse Reason for Continuing Indwelling Catheter: Not indwelling catheter Urinary Catheter Date of Insertion: 06/17/20 Urinary Catheter Time of Insertion: 11:12 Date Urinary Catheter Removed: 06/17/20 Time Urinary Catheter Discontinued: 16:28 Discharge Data Data Completed and Pending: Completed Studies During Hospitalization Category Date Time Status Cytology [PTH] Ro utine Pth 06/18/20 10:43 Completed US OB limited 768 15 Stat Ultrasound 06/16/20 08:00 Completed Vitals: Last Vital Signs Temp 98.2 F 06/18/20 13:03 Pulse 85 06/18/20 13:03 Resp 16 06/18/20 13:03 BP 145/84 06/18/20 13:03 Pulse Ox 96 06/17/20 10:49 Discharge Plan Discharge Patient Disposition: Home Condition: Stable Prescriptions: New ibuprofen 800 mg tablet 800 mg PO Q8H Qty: 30 RF: 0 docusate sodium 100 mg Capsule 100 mg PO BID PRN (Reason: constipation) Qty: 30 RF: 0 Continued prenat.vits,faith,[id number] Tablet 1 tab PO DAILY RF: 0 Discontinued metformin RF: 0 No Action labetalol 100 mg tablet 50 mg PO DAILY RF: 0 sertraline [Zoloft] 50 mg tablet 100 mg PO DAILY Qty: 30 RF: 2 alprazolam [Xanax] 0.25 mg tablet 0.25 mg PO .every 12 hours PRN (Reason: anxiety) Qty: 20 RF: 0 Discharge Orders: Discharge Order (Routine); Ordered 06/18/20 Ordered By: Johann Smith Referrals: Johann Smith MD [Physician] - 06/20/20 8:00 am (Your follow up visit for a Blood Pressure check is scheduled for 06/20/2020 at 8:[address] Baca. They will give you the date & time of your 6 week visit before you leave that day.) Patient Instructions: Loss of a child (GEN), OB Discharge Report, OB Food/Drug Interaction Guide, OB Vaginal Deliveries Activity Restrictions/Additional Instructions: Pelvic rest for 6 weeks, no heavy lifting for 6 weeks Discharge Attestations Time Spent in Discharge Care*: greater than 30 min Quality Metrics Clinical Quality Measures During this hospital stay, did patient experience: None Coding Level of Care Code Acute Haul Truck Driver for Chg Fwd Diagnoses Intrauterine in O36.4XX0
--- NOTE | 2020-06-19 13:52 | PC.RESP ---
SMOKING CESSATION INFORMATION SENT TO PATIENT.
== END 2020-06-18 12:55 | disposition home or self-care (01) | DRG 806 ==
LOC: OPOB 08:59 → OBGYN 08:59
PROVIDERS: Admitting Provider Obstetrics & Gynecology; Family Provider Nurse Practitioner Family; Visit Provider Obstetrics & Gynecology
DX: O36.4XX0 Maternal care for intrauterine death, not applicable or unspecified (principal); O41.03X0 Oligohydramnios, third trimester, not applicable or unspecified; Z37.1 Single stillbirth; O24.425 Gestational diabetes mellitus in childbirth, controlled by oral hypoglycemic drugs; O16.4 Unspecified maternal hypertension, complicating childbirth; O99.334 Smoking (tobacco) complicating childbirth; F17.210 Nicotine dependence, cigarettes, uncomplicated; O99.344 Other mental disorders complicating childbirth; F41.8 Other specified anxiety disorders; Z3A.35 35 weeks gestation of pregnancy
CPT/HCPCS: 12345; 36415; 51702; 59409; 76815; 80053; 81003; 82570; 84156; 84550; 85025; 85027; 86850; 86900; 88307; 96375; J2405; J3010; J3490

== ENCOUNTER 2020-06-21 16:32 | Emergency (ER) | payer BC, MEDICAID, SELFPAY ==
[2020-06-21 16:35] VITALS: BP 210/125; PULSE 78; RESP 18; TEMP 36.7; O2SAT 97; BMI 38.0
--- NOTE | 2020-06-21 18:05 | XRR_ITS ---
PROCEDURE INFORMATION: Exam: XR Chest, 1 View Exam date and time: 06/21/2020 6:16 PM Age: 39 years old Clinical indication: Shortness of breath; Additional info: SOB, increased blood pressure. Post x 4 days. TECHNIQUE: Imaging protocol: XR of the chest Views: 1 view. Total images: 1 COMPARISON: CR Chest 1 [place] [id number] 06/14/2019 5:44 PM FINDINGS: Lungs: Unremarkable. No consolidation. Pleural space: Unremarkable. No pleural effusion. No pneumothorax. Heart/Mediastinum: Unremarkable. No cardiomegaly. Bones/joints: Unremarkable. Other findings: Heavy body habitus. XR/XR chest 1V portable [id number] IMPRESSION: Nonacute.
--- NOTE | 2020-06-21 18:16 | W.ED.GENADLT ---
HPI - General Adult General: Chief complaint: General Medical Stated complaint: High BP Time Seen by Provider: 06/21/20 18:07 Source: patient Mode of arrival: ambulatory Limitations: no limitations History of Present Illness: HPI narrative: 39-year-old female states she gave 3 days ago vaginally. States she had high blood pressure throughout her was told she may be preeclamptic. She has been taking 50 mg of labetalol at home and states this morning her blood pressure was increased that she took 100. Tonight it is 199/110 here. She states she has had some slight swelling in her legs. Denies any pain anywhere. Denies any fever. Associated symptoms: Deny chest pain, dyspnea, headache(s), nausea, rash or vomiting Review of Systems Const: Denies: fever(s), chills, body aches or change in appetite Eyes: Denies: blurry vision or eye discomfort ENMT: Denies: throat pain or dental pain Card: Denies: chest pain Resp: Denies: dyspnea GI: Denies: abdominal pain, nausea, vomiting or diarrhea : Denies: dysuria Musc: Denies: neck pain or back pain Skin/Breast: Denies: rash Neuro: Denies: headache(s) Psych: Denies: depression Dany/Lymph: Denies: easy bruising All/Imm: Denies: urticaria PFSH ED PFSH: Medical History Hypertension Surgical History No pertinent past surgical history Family History Grandmother Diabetes Paternal grandmother Maternal grandmother Heart disease Paternal grandmother Grandfather Diabetes Paternal grandfather Maternal grandfather Heart disease Paternal grandfather Father Hypertension Heart disease Hyperlipidemia Family/Other Heart disease Maternal uncle Denies family history of Colon cancer Ovarian cancer Breast cancer Family history of thyroid problem Uterine cancer Stroke Social History Smoking and tobacco status: current every day smoker cigarettes Packs smoked per day: 0.5 Years cigarettes smoked: 20 Quit status (tobacco): has tried quititng Number of times tried to quit tobacco: 2 Second hand smoke exposure: No Alcohol intake: never Female Reproductive History: Date of last menstrual period: 10/11/19 Para: 1 Spontaneous abortions: No Physical Exam Const: COMMON NORMALS: no acute distress, patient oriented x3 and healthy appearing HENMT: COMMON NORMALS: normocephalic and atraumatic HEAD & SCALP: normocephalic and atraumatic Eye: COMMON NORMALS: Equal, round and reactive pupils present and EOMs intact bilaterally PUPIL: Yes Equal, round and reactive pupils present Neck/C-Spine: COMMON NORMALS: full ROM and supple Chest: COMMONS NORMALS: normal inspection of the chest and normal palpation of entire chest wall Resp: COMMON NORMALS: normal respiratory effort, No retractions, No use of accessory muscles and clear to auscultation bilaterally AUSCULTATION: clear to auscultation bilaterally Cardio: COMMON NORMALS: regular rate, regular rhythm and No murmurs present (Cardio) RATE: regular rate RHYTHM: regular rhythm GI: COMMON NORMALS: Normal to inspection, nondistended, normoactive bowel sounds present, Soft to palpation, non-tender and no masses PALPATION: Yes Soft to palpation Extremity: COMMON NORMALS: normal to inspection and full ROM NARRATIVE EXTREMITY EXAM: 2+ edema to lower extremities Neuro: COMMON NORMALS: patient oriented x3, moves all extremities and no focal motor deficits Psych: COMMON NORMALS: mental status grossly normal, Normal thought process present and cooperative THOUGHT PROCESS: Normal thought process present Skin: COMMON NORMALS: no rashes or lesions noted and no wounds GENERAL SKIN EXAM: no rashes or lesions noted Course Vital Signs: Vital signs: Vital Signs Temperature 98.0 F 06/21/20 16:35 Pulse Rate 78 06/21/20 20:50 Respiratory Rate 16 06/21/20 20:50 Blood Pressure 153/87 06/21/20 20:50 Pulse Oximetry 98 06/21/20 20:50 MDM - General Adult MDM Narrative: Medical decision making narrative: Patient presents here with hypertension. She has no signs of preeclampsia and has had no seizures. Her blood pressures improved here and she is requesting to go home. We will increase her labetalol from 50 daily to 100. She is to follow-up with her OB and return if worsening. She understands agrees to plan. Lab Data: Labs: Lab Results 06/21/20 06/21/20 06/21/20 Range/Units 18:48 18:48 19:42 WBC 9.3 (4.0-10.0) 10^3/ uL RBC 4.22 (4.1-5.3) 10^6/u L Hgb 12.9 (11.5-15.3) g/dL Hct 38.4 (37.0-47.0) % MCV 91.0 (81-99) fL MCH 30.6 (28.0-34.0) pg MCHC 33.6 (30.0-36.0) g/dL RDW 12.8 (12.1-15.1) % Plt Count 256 (130-400) 10^3/c mm MPV 10.6 H (7.4-10.4) fL Neut % (Auto) 59.0 % Lymph % (Auto) 27.8 % [place] % (Auto) 8.6 % Eos % (Auto) 3.8 % Baso % (Auto) 0.5 % Neut # (Auto) 5.47 (1.8-7.7) 10^3/u L Lymph # (Auto) 2.6 (0.8-4.8) 10^3/u L [place] # (Auto) 0.8 (0.2-0.9) 10^3/u L Eos # (Auto) 0.4 (0.0-0.8) 10^3/u L Baso # (Auto) 0.1 (0.0-0.1) 10^3/u L Nucleated RBC % (a uto) 0 % Nucleated RBCs # 0.0 /100WBC Sodium 138 (136-145) mmol/L Potassium 3.9 (3.5-5.1) mmol/L Chloride 104 (98-107) mmol/L Carbon Dioxide 24 (22-29) mmol/L Anion Gap 13.9 (5-19) BUN 8 (6-20) mg/dL Creatinine 0.5 (0.5-0.9) mg/dL GFR Calculation 138.1 H (90-130) mL/min Glucose 71 (65-115) mg/dL Calculated Osmolal ity 283 L (285-295) mOsm/k g Calcium 8.9 (8.5-10.5) mg/dL Total Bilirubin 0.2 (0.15-1.2) mg/dL AST 35 H (0-32) U/L ALT 29 (0-33) U/L Alkaline Phosphata se 116 H (35-105) IU/L Lactate Dehydrogen ase 204 (135-214) U/L Total Protein 6.3 L (6.6-8.7) g/dL Albumin 3.4 L (3.5-5.2) g/dL Globulin 2.9 (1.3-4.6) g/dL Urine Color Red (Yellow) Urine Appearance Cloudy (CLEAR) Urine pH 6 (5-7) Ur Specific Gravit y 1.020 (1.005-1.030) Urine Protein 2+ H (Negative) Urine Glucose (UA) Norm (Normal) Urine Ketones Negative (Negative) Urine Blood 3+ H (Negative) Urine Nitrate Negative (Negative) Urine Bilirubin Neg (Negative) Urine Urobilinogen Norm (Negative) mg/dL Ur Leukocyte Bette ase 2+ H (Negative) Urine RBC Too numerous to c nt H (0-2) /hpf Urine WBC Too numerous to c nt H (0-5) /hpf Ur Squamous Epith Cells 25-40 H (0-5) /hpf Amorphous Sediment Not Reportable Urine Bacteria 1+ H (NONE) /hpf EKG Data^: EKG 1: Attestation: I personally reviewed and interpreted this EKG as follows: EKG interpretation date: 06/21/20 Interpretation: nsr hr [address] or t wave abnormalities qrs 97 qtc 386 Computer generated interpretation: Chest X-Ray 06/21/20 18:05 IMPRESSION: Nonacute. Discharge Plan Discharge Patient Disposition: Home Clinical Impression: Hypertension Qualifiers: Hypertension type: unspecified Qualified Code(s): I10 - Essential (primary) hypertension Condition: Stable Prescriptions: Changed labetalol 100 mg tablet 100 mg PO DAILY Qty: 30 RF: 0 No Action prenat.vits,faith,[id number] Tablet 1 tab PO DAILY RF: 0 sertraline [Zoloft] 50 mg tablet 100 mg PO DAILY Qty: 30 RF: 2 alprazolam [Xanax] 0.25 mg tablet 0.25 mg PO .every 12 hours PRN (Reason: anxiety) Qty: 20 RF: 0 ibuprofen 800 mg tablet 800 mg PO Q8H Qty: 30 RF: 0 docusate sodium 100 mg Capsule 100 mg PO BID PRN (Reason: constipation) Qty: 30 RF: 0 Discharge Orders: Discharge ED (Routine); Ordered 06/21/20 Ordered By: Laith Terry Referrals: Johann Smith MD [Physician] - 1-3 days Discharge Diet: Advance as tolerated Discharge Activity: Resume usual activity Patient Instructions: Hypertension (ED) Coding Level of Care Code ED Employee Benefits Attorney for Chg Fwd Exam Comprehensive
[2020-06-21 18:33] VITALS: BP 199/110; PULSE 75; RESP 16; O2SAT 97
[2020-06-21] MEDS: hyDRALAzine 20 mg/mL INJ 1 mL 10 MG IVP (19:06)
[2020-06-21 19:14] LABS: Basophils # 0.1 10^3/uL (0.0-0.1); Basophils % 0.5 %; Eosinophils # 0.4 10^3/uL (0.0-0.8); Eosinophils % 3.8 %; Hematocrit 38.4 % (37.0-47.0); Hemoglobin 12.9 g/dL (11.5-15.3); Lymphocytes # 2.6 10^3/uL (0.8-4.8); Lymphocytes % 27.8 %; Mean Corpuscular HGB Conc 33.6 g/dL (30.0-36.0); Mean Corpuscular Hemoglobin 30.6 pg (28.0-34.0); Mean Platelet Volume 10.6 fL (7.4-10.4); Monocytes # 0.8 10^3/uL (0.2-0.9); Monocytes % 8.6 %; Neutrophils # 5.47 10^3/uL (1.8-7.7); Nucleated Red Blood Cells % 0 %; Platelet Count 256 10^3/cmm (130-400); Red Blood Count 4.22 10^6/uL (4.1-5.3); Red Cell Distribution Width 12.8 % (12.1-15.1); White Blood Count 9.3 10^3/uL (4.0-10.0)
[2020-06-21 19:35] LABS: Alanine Aminotransferase 29 U/L (0-33); Albumin Level 3.4 g/dL (3.5-5.2); Alkaline Phosphatase 116 IU/L (35-105); Anion Gap 13.9 (5-19); Aspartate Amino Transferase 35 U/L (0-32); Blood Urea Nitrogen 8 mg/dL (6-20); Calcium 8.9 mg/dL (8.5-10.5); Carbon Dioxide 24 mmol/L (22-29); Chloride 104 mmol/L (98-107); Globulin 2.9 g/dL (1.3-4.6); Glomerular Filtration Rate 138.1 mL/min (90-130); Glucose 71 mg/dL (65-115); Lactate Dehydrogenase 204 U/L (135-214); Osmolality Calculated 283 mOsm/kg (285-295); Potassium 3.9 mmol/L (3.5-5.1); Sodium 138 mmol/L (136-145); Total Bilirubin 0.2 mg/dL (0.15-1.2); Total Protein 6.3 g/dL (6.6-8.7)
[2020-06-21] MEDS: labetalol 5 mg/mL SDV 20mL 10 MG IVP (20:03)
[2020-06-21 20:31] LABS: Protein Urine 2+ (Negative); Urine Appearance Cloudy (CLEAR); Urine Color Red (Yellow); pH Urine 6 (5-7)
[2020-06-21 20:32] LABS: Add Urine Microscopic? YES; Bilirubin Urine Neg (Negative); Blood Urine 3+ (Negative); Glucose Urine UA Norm (Normal); Ketones Urine Negative (Negative); Leukocyte Esterase Urine 2+ (Negative); Nitrate Urine Negative (Negative); Urobilinogen Urine Norm (Negative)
[2020-06-21 20:36] LABS: Add Urine Culture? No; Bacteria Urine 1+ /hpf; RBC Urine TOO NUMEROUS TO CNT /hpf (0-2); Squamous Epithelial Cell Urine 25-40 /hpf (0-5); WBC Urine TOO NUMEROUS TO CNT /hpf (0-5)
[2020-06-21 20:50] VITALS: BP 153/87; PULSE 78; RESP 16; O2SAT 98
== END 2020-06-21 20:51 | disposition home or self-care (01) ==
PROVIDERS: Emergency Provider Emergency Medicine
DX: I10 Essential (primary) hypertension (principal); F17.210 Nicotine dependence, cigarettes, uncomplicated
CPT/HCPCS: 12345; 71045; 80053; 81001; 83615; 85025; 96374; 96375; 99283; J0360; J3490

== ENCOUNTER → 2020-07-11 08:55 | Outpatient (BNVA) | payer BC, MEDICAID, SELFPAY | PROVIDERS: Visit Provider Social Worker | DX: O99.345 Other mental disorders complicating the puerperium (principal); F53.0 Postpartum depression; F41.1 Generalized anxiety disorder; F33.1 Major depressive disorder, recurrent, moderate | CPT/HCPCS: 90834 ==

== ENCOUNTER → 2020-07-18 08:40 | Outpatient (BNVA) | payer BC, MEDICAID, SELFPAY | PROVIDERS: Visit Provider Social Worker | DX: O99.345 Other mental disorders complicating the puerperium (principal); F53.0 Postpartum depression; F41.1 Generalized anxiety disorder; F33.1 Major depressive disorder, recurrent, moderate | CPT/HCPCS: 90834 ==

== ENCOUNTER → 2020-07-25 08:53 | Outpatient (BNVA) | payer BC, MEDICAID, SELFPAY | PROVIDERS: Visit Provider Social Worker | DX: F41.1 Generalized anxiety disorder (principal); F33.1 Major depressive disorder, recurrent, moderate; O99.345 Other mental disorders complicating the puerperium; F53.0 Postpartum depression | CPT/HCPCS: 90834 ==

== ENCOUNTER → 2020-08-03 08:28 | Outpatient (BNVA) | payer BC, MEDICAID, SELFPAY | PROVIDERS: Visit Provider Obstetrics & Gynecology | DX: Z30.9 Encounter for contraceptive management, unspecified (principal); Z30.017 Encounter for initial prescription of implantable subdermal contraceptive; Z39.2 Encounter for routine postpartum follow-up | CPT/HCPCS: 81025 ==

== ENCOUNTER → 2020-08-08 08:30 | Outpatient (BNVA) | payer BC, MEDICAID, SELFPAY | PROVIDERS: Visit Provider Social Worker | DX: F41.1 Generalized anxiety disorder (principal); F33.1 Major depressive disorder, recurrent, moderate; O99.345 Other mental disorders complicating the puerperium; F53.0 Postpartum depression | CPT/HCPCS: 90834 ==

== ENCOUNTER 2020-08-26 22:27 | Emergency (ER) | payer BC, MEDICAID, SELFPAY ==
[2020-08-26 22:43] VITALS: BP 149/93; PULSE 85; RESP 16; TEMP 36.6; O2SAT 97; BMI 35.6
--- NOTE | 2020-08-26 23:18 | ED_ITS ---
HPI - Female Genitourinary General: Chief complaint: Urogenital-Female Stated complaint: DELIVED STILLBORN 2MO AGO, HAS BLOODY DISCHARGE Time Seen by Provider: 08/26/20 22:52 Source: patient Mode of arrival: ambulatory Limitations: no limitations History of Present Illness: HPI Narrative: Patient is a very nice 39-year-old female who presents to ED today for evaluation of vaginal bleeding. Patient tells me today she began having a small amount of vaginal bleeding and states she passed a quarter sized clot that made her concerned. On 06/17 patient unfortunately suffered an intrauterine at 36 weeks and subsequently underwent stillborn delivery (fetus had been diagnosed with trisomy 18). Patient tells me she bled for approximately 2 weeks following delivery. Following that she states she did not have any bleeding, abdominal pain, or abdominal cramping over the next [address] Willis at her 6-week visit. She reports they did test which was negative and inserted the Nexplanon control implant. Patient states she has not had any bleeding since the insertion of the Nexplanon. She reports intercourse for the first time 3 days ago. Patient states she has not soaked a pad throughout the entire day. She has having some mild lower pelvic cramping that she states feels like menstrual cycle cramping. No fevers. No vaginal odor or discharge. No dyspareunia. MD elicited complaint: vaginal bleeding Onset (ago): hour(s) Quality of pain: cramping Vaginal discharge: none Vaginal bleeding: scant and clots (one quarter sized clot) Exacerbating factors: none Relieving factors: none Associated symptoms: Reports no associated symptoms; Deny abdominal pain, nausea or vaginal discharge Treatment prior to arrival: none Patient : No Date of Last Menstrual Period: 10/11/19 Review of Systems Const: Denies: fever(s), chills, body aches, fatigue or malaise Eyes: Denies: change in vision Card: Denies: chest pain Resp: Denies: dyspnea GI: Denies: abdominal pain, nausea, vomiting or diarrhea : Reports: vaginal bleeding; Denies: flank pain, difficulty voiding, dysuria, urinary frequency, urinary urgency, urinary hesitancy, genital lesions, vaginal odor or vaginal discharge Musc: Denies: back pain Neuro: Denies: dizziness PFS ED PFSH: Medical History (Updated 08/26/20 @ 23:20 by ROJELIO Tan) Hypertension examination following vaginal delivery Surgical History No pertinent past surgical history Family History Grandmother Diabetes Paternal grandmother Maternal grandmother Heart disease Paternal grandmother Grandfather Diabetes Paternal grandfather Maternal grandfather Heart disease Paternal grandfather Father Hypertension Heart disease Hyperlipidemia Family/Other Heart disease Maternal uncle Denies family history of Colon cancer Ovarian cancer Breast cancer Family history of thyroid problem Uterine cancer Stroke Social History (Updated 08/03/20 @ 08:38 by Ginette Quezada RN) Smoking and tobacco status: current every day smoker cigarettes Packs smoked per day: 1 Years cigarettes smoked: 20 Second hand smoke exposure: No Alcohol intake: never Female Reproductive History: Date of last menstrual period: 10/11/19 Para: 1 Spontaneous abortions: No Physical Exam Const: COMMON NORMALS: no acute distress, average body habitus, patient oriented x3, no limitations, healthy appearing, alert and well nourished GENERAL APPEARANCE: cooperative ORIENTATION/CONSCIOUSNESS: Yes awake, Yes oriented to person, Yes oriented to place and Yes oriented to time Resp: COMMON NORMALS: normal respiratory effort and clear to auscultation bilaterally AUSCULTATION: clear to auscultation bilaterally Cardio: COMMON NORMALS: regular rate and regular rhythm RATE: regular rate RHYTHM: regular rhythm GI: COMMON NORMALS: Normal to inspection, nondistended, normoactive bowel sounds present, Soft to palpation, non-tender, No hepatosplenomegaly present and no masses PALPATION: Yes Soft to palpation and Yes No hepatosplenomegaly present : COMMON NORMALS: Yes no CVA tenderness BLADDER/KIDNEY EXAM: Yes no CVA tenderness Back/Pelvis: COMMON NORMALS: no CVA tenderness Neuro: COMMON NORMALS: patient oriented x3 SENSORIUM/ORIENTATION: Yes alert, Yes oriented to person, Yes oriented to place and Yes oriented to time Course Vital Signs: Vital signs: Vital Signs Temperature 97.9 F 08/26/20 22:43 Pulse Rate 85 08/26/20 22:43 Respiratory Rate 16 08/26/20 22:43 Blood Pressure 149/93 08/26/20 22:43 Pulse Oximetry 97 08/26/20 22:43 MDM - Female MDM Narrative: Medical decision making narrative: Patient most likely having intermittent/breakthrough bleeding following Nexplanon insertion. Based on history I have no suspicion for retained products. She is not complaining of vaginal discharge or vaginal odor. No painful intercourse. Abdomen is nonsurgical. I do not see any need for emergent labs at this time as bleeding has been very minimal. Pelvic ultrasound or pelvic exam is unlikely to change any form of management from the ED. recommend she continue to monitor bleeding at home. If bleeding becomes severe she may return to the emergency department for reevaluation. If bleeding continues/becomes sporadic/inconvenient she may speak to Dr. Willis about her options with the Nexplanon. Discharge Plan Discharge Patient Disposition: Home Clinical Impression: Vaginal bleeding Condition: Stable Prescriptions: No Action ibuprofen 800 mg tablet 800 mg PO Q8H PRN (Reason: pain) RF: 0 prenat.vits,faith,[id number]-lstsg Tablet 1 tab PO DAILY RF: 0 sertraline [Zoloft] 50 mg tablet 100 mg PO DAILY Qty: 30 RF: 2 alprazolam [Xanax] 0.25 mg tablet 0.25 mg PO .every 12 hours PRN (Reason: anxiety) Qty: 20 RF: 0 amlodipine 10 mg tablet 10 mg PO BID RF: 0 hydrochlorothiazide 25 mg tablet 25 mg PO DAILY RF: 0 atorvastatin 10 mg tablet 10 mg PO .at bedt RF: 0 docusate sodium 100 mg Capsule 100 mg PO BID PRN (Reason: constipation) Qty: 30 RF: 0 Discharge Orders: Discharge ED (Routine); Ordered 08/26/20 Ordered By: Sara Garcias Referrals: Tereza Ibrahim GEOTHERMAL POWERPLANT MECHANIC HELPER [Primary Care Provider] - Activity Restrictions/Additional Instructions: As discussed you may return to the emergency department for severe vaginal bleeding, soaking more than a pad an hour, severe abdominal/pelvic pain, fevers, or any other concerns you may have. Coding Level of Care Code ED Electroplater Helper for Seth Bernal
[2020-08-27 00:29] VITALS: BP 137/87; PULSE 79; RESP 17; O2SAT 99
== END 2020-08-27 00:29 | disposition home or self-care (01) ==
PROVIDERS: Emergency Provider Physician Assistant; PCP Nurse Practitioner Family
DX: N93.9 Abnormal uterine and vaginal bleeding, unspecified (principal); I10 Essential (primary) hypertension; F17.210 Nicotine dependence, cigarettes, uncomplicated
CPT/HCPCS: 99282

== ENCOUNTER → 2020-08-29 08:12 | Outpatient (BNVA) | payer BC, MEDICAID, SELFPAY | PROVIDERS: Visit Provider Social Worker | DX: F41.1 Generalized anxiety disorder (principal); F33.1 Major depressive disorder, recurrent, moderate; O99.345 Other mental disorders complicating the puerperium; F53.0 Postpartum depression | CPT/HCPCS: 90834 ==

== ENCOUNTER → 2020-09-19 07:49 | Outpatient (BNVA) | payer BC, MEDICAID, SELFPAY | PROVIDERS: Visit Provider Social Worker | DX: O99.345 Other mental disorders complicating the puerperium (principal); F33.0 Major depressive disorder, recurrent, mild; F41.1 Generalized anxiety disorder; F33.1 Major depressive disorder, recurrent, moderate | CPT/HCPCS: 90834 ==

== ENCOUNTER → 2020-10-03 07:48 | Outpatient (BNVA) | payer BC, MEDICAID, SELFPAY | PROVIDERS: Visit Provider Social Worker | DX: F41.1 Generalized anxiety disorder (principal); F33.1 Major depressive disorder, recurrent, moderate; O99.345 Other mental disorders complicating the puerperium; F53.0 Postpartum depression | CPT/HCPCS: 90834 ==

== ENCOUNTER → 2020-10-17 07:48 | Outpatient (BNVA) | payer BC, MEDICAID, SELFPAY | PROVIDERS: Visit Provider Social Worker | DX: F33.1 Major depressive disorder, recurrent, moderate (principal); F41.1 Generalized anxiety disorder | CPT/HCPCS: 90834 ==

== ENCOUNTER → 2020-10-31 07:54 | Outpatient (BNVA) | payer BC, MEDICAID, SELFPAY | PROVIDERS: Visit Provider Social Worker | DX: F33.1 Major depressive disorder, recurrent, moderate (principal); F41.1 Generalized anxiety disorder | CPT/HCPCS: 90834 ==

== ENCOUNTER → 2020-11-12 07:54 | Outpatient (BNVA) | payer BC, MEDICAID, SELFPAY | PROVIDERS: Visit Provider Social Worker | DX: F33.1 Major depressive disorder, recurrent, moderate (principal); F41.1 Generalized anxiety disorder | CPT/HCPCS: 90834 ==

== ENCOUNTER → 2020-11-15 10:19 | Outpatient (BNVA) | payer BC, MEDICAID, SELFPAY | PROVIDERS: Visit Provider Psychiatry & Neurology Psychiatry | DX: F17.200 Nicotine dependence, unspecified, uncomplicated (principal); F41.1 Generalized anxiety disorder; F33.1 Major depressive disorder, recurrent, moderate | CPT/HCPCS: 99214 ==

== ENCOUNTER 2022-03-13 08:54 | Outpatient (CLI) | payer MEDICAID, SELFPAY ==
--- NOTE | 2022-03-13 09:02 | MM_ITS ---
WS: [id number] Bilateral screening 3D tomosynthesis digital mammogram, 03/13/2022 Clinical Data: Z12.39 - Encounter for other screening for malignant neop... Comparison: None. Findings: The breast parenchymal pattern shows fibroglandular tissue. No spiculated masses or clustered calcifi cations are seen. There are no secondary signs of carcinoma. There are lymph nodes in both axilla. MM/[place] [id number] Impression: 1. Negative bilateral mammogram with no prior exam for review.. 2. Recommend annual screening mammograms. BIRADS: 1-Negative FOLLOW UP: 1 Year Follow-up The CAD grocery checker was used.
== END 2022-03-13 08:55 | disposition home or self-care (01) ==
LOC: RAD 08:55
PROVIDERS: Visit Provider Obstetrics & Gynecology
DX: Z12.31 Encounter for screening mammogram for malignant neoplasm of breast (principal)
CPT/HCPCS: 77063; 77067

== ENCOUNTER 2022-05-07 07:26 | Emergency (ER) | payer MEDICAID, SELFPAY ==
[2022-05-07 07:41] VITALS: BP 141/80; PULSE 90; RESP 18; TEMP 38.8; O2SAT 98
[2022-05-07 07:43] VITALS: O2SAT 97
--- NOTE | 2022-05-07 07:43 | XR_ITS ---
WS: [id number] Portable AP upright chest, 05/07/2022 Clinical Data: dyspnea/cough Comparison: Portable chest, 06/21/2020 Findings: No nodules, masses or effusions are seen. The heart is normal. The pulmonary vascularity is not increased. No pneumonia or pneumothorax is seen. Monitor leads are on the chest wall. XR/XR chest 1V portable [id number] Impression: Negative chest.
--- NOTE | 2022-05-07 08:14 | W.ED.COVID ---
HPI - COVID General: Chief Complaint: COVID symptoms Stated Complaint: SOB, Chest Pain, Body Aches Time Seen by Provider: 05/07/22 07:30 Source: patient Mode of arrival: ambulatory Triage information: Has fever, cough or shortness of breath. No known COVID + exposure last 14 days History of Present Illness: 41-year-old female presents emergency room with 6-7-day symptoms of cough myalgias nausea. Cough is nonproductive no diarrhea. Has had a fever arrives here with a temp of 101.8. No chest pain no abdominal pain no dysuria urgency or frequency. MD complaint: has COVID symptoms Prior covid testing: no COVID 19 common symptoms: positive fever(s), chills, cough, non-productive cough, dyspnea, fatigue, body aches and nausea; negative productive cough, throat pain, nasal congestion, vomiting or diarrhea COVID 19 other sytmptoms: negative chest pain or requiring oxygen Onset (ago): day(s) (3) Severity: mild Pertinent comorbid conditions: hypertension Treatment prior to arrival: none COVID Results: SARS-CoV-2 RNA (RT-PCR) Not detected (NOT DETECTED) 06/05/20 16:07 SARS-CoV-2 (PCR) Pending 05/07/22 07:50 Coronavirus Type 229E (PCR) Pending 05/07/22 07:50 Review of Systems Const: Reports: fever(s), chills, body aches and fatigue ENMT: Denies: throat pain, ear or mastoid pain, nasal discharge or nasal congestion Card: Denies: chest pain, edema, dyspnea on exertion or orthopnea Resp: Reports: dyspnea and non-productive cough; Denies: productive cough or wheezing GI: Reports: nausea; Denies: abdominal pain, vomiting or diarrhea : Denies: flank pain, difficulty voiding, dysuria, urinary frequency or urinary urgency Skin/Breast: Denies: rash or pruritus PFSH ED PFSH: Medical History Hypertension examination following vaginal delivery Surgical History No pertinent past surgical history Family History Grandmother Diabetes Paternal grandmother Maternal grandmother Heart disease Paternal grandmother Grandfather Diabetes Paternal grandfather Maternal grandfather Heart disease Paternal grandfather Father Hypertension Heart disease Hyperlipidemia Family/Other Heart disease Maternal uncle Denies family history of Colon cancer Ovarian cancer Breast cancer Family history of thyroid problem Uterine cancer Stroke Social History Smoking and tobacco status: current every day smoker (1pk daily) cigarettes Packs smoked per day: 1 Years cigarettes smoked: 20 and e-cigarettes E-cig/vape details: vaping throughout the day Quit status (tobacco): has tried quititng Number of times tried to quit tobacco: 1 Second hand smoke exposure: No Alcohol intake: never Female Reproductive History: Date of last menstrual period: 05/07/22 Para: 1 Spontaneous abortions: No Physical Exam Const: GENERAL APPEARANCE: cooperative and comfortable ORIENTATION/CONSCIOUSNESS: Yes awake, Yes oriented to person, Yes oriented to place and Yes oriented to time HENMT: COMMON NORMALS: normocephalic, atraumatic, hearing grossly normal bilaterally, external ears normal, EAC's normal, TM's normal bilaterally and Normal nasal mucous membranes and turbinates present HEAD & SCALP: normocephalic and atraumatic NOSE: Normal nasal mucous membranes and turbinates present EXTERNAL EAR: Yes external ears normal EXTERNAL AUDITORY CANAL: EAC's normal TYMPANIC MEMBRANE: TM's normal bilaterally Eye: COMMON NORMALS: Equal, round and reactive pupils present, EOMs intact bilaterally, conjunctivae normal and no scleral icterus CONJUNCTIVA: Yes conjunctivae normal PUPIL: Yes Equal, round and reactive pupils present Neck/C-Spine: COMMON NORMALS: full ROM, no lymphadenopathy, supple and no JVD Resp: COMMON NORMALS: normal respiratory effort, No retractions, No use of accessory muscles and clear to auscultation bilaterally AUSCULTATION: clear to auscultation bilaterally Cardio: COMMON NORMALS: no JVD, regular rate, regular rhythm and No murmurs present (Cardio) RATE: regular rate RHYTHM: regular rhythm GI: COMMON NORMALS: Soft to palpation and No hepatosplenomegaly present AUSCULTATION: Yes normoactive bowel sounds PALPATION: Yes Soft to palpation, No Tenderness to palpation present (GI), No Guarding due to palpation present (GI) and Yes No hepatosplenomegaly present Extremity: COMMON NORMALS: normal to inspection, capillary refill normal, no clubbing, cyanosis or edema, no calf tenderness and no pedal edema Neuro: SENSORIUM/ORIENTATION: Yes oriented to person, Yes oriented to place and Yes oriented to time Skin: COMMON NORMALS: no rashes or lesions noted GENERAL SKIN EXAM: no rashes or lesions noted Course Vital Signs: Vital signs: Vital Signs Temperature 101.8 F H 05/07/22 07:41 Pulse Rate 110 H 05/07/22 08:29 Respiratory Rate 20 H 05/07/22 08:29 Blood Pressure 147/90 05/07/22 08:29 Pulse Oximetry 97 05/07/22 08:29 Oxygen Delivery Me thod 05/07/22 07:43 MDM - COVID Medical Decision Making Viral upper respiratory infection suspect COVID. COVID and flu swabs are pending discussed with patient. Chest x-ray is unremarkable. Will discharge home she wishes to proceed with Paxlovid if the COVID is positive. We will contact her when results are available. Medical Records I reviewed the patient's medical records. Lab Data I reviewed the patient's lab results. Radiology Impressions Chest X-Ray 05/07/22 07:43 Impression: Negative chest. Laboratory Results Influenza Type A Ag negative (Negative) 05/07/22 07:50 Influenza Type B Ag negative (Negative) 05/07/22 07:50 SARS-CoV-2 RNA (RT-PCR) Not detected (NOT DETECTED) 06/05/20 16:07 SARS-CoV-2 (PCR) Pending 05/07/22 07:50 Coronavirus Type 229E (PCR) Pending 05/07/22 07:50 Discharge Plan Discharge Patient Disposition: Home Clinical Impression: Suspected COVID-19 virus infection Condition: Stable Prescriptions: No Action ibuprofen 800 mg tablet 800 mg PO Q8H PRN (Reason: pain) multivitamin Tablet 1 tab PO DAILY hydrochlorothiazide 25 mg tablet 25 mg PO DAILY amlodipine 10 mg tablet 10 mg PO DAILY Discharge Orders: Discharge ED (Routine); Ordered 05/07/22 Ordered By: Rainer Roper Referrals: Tereza Ibrahim, RUBBER GOODS INSPECTOR TESTER [Primary Care Provider] - Discharge Diet: Usual diet Discharge Activity: Increase activity as tolerated Patient Instructions: COVID-19 (Coronavirus Disease 2019) (ED), Opioid Safety, Pain Management Activity Restrictions/Additional Instructions: Your evaluated for COVID and flu in the emergency room today. I suspect you have COVID based on your symptoms. We will contact you with the results when they become available. If your COVID is positive we will send in [place] for a 5-day course. Coding Level of Care Code ED Soccer Ball Assembler for Seth Fwd Exam Comprehensive
[2022-05-07 08:29] VITALS: BP 147/90; PULSE 110; RESP 20; O2SAT 97
[2022-05-07 08:35] LABS: Influenza A by IFA negative (Negative); Influenza B by IFA negative (Negative)
[2022-05-07 10:54] LABS: Adenovirus Not Detected (NOT DETECT); Chlamydia Pneumoniae Not Detected (NOT DETECT); Coronavirus 229E,HKU1,NL63,OC4 Not Detected (NOT DETECT); Human Metapneumovirus Not Detected (NOT DETECT); Human Rhinovirus/Enterovirus Not Detected (NOT DETECT); Influenza A Not Detected (NOT DETECT); Influenza A H1 Not Detected (NOT DETECT); Influenza A H1-2009 Not Detected (NOT DETECT); Influenza A H3 Not Detected (NOT DETECT); Influenza B Not Detected (NOT DETECT); Mycoplasma Pneumoniae Not Detected (NOT DETECT); Parainfluenza Virus Type 1 Not Detected (NOT DETECT); Parainfluenza Virus Type 2 Not Detected (NOT DETECT); Parainfluenza Virus Type 3 Not Detected (NOT DETECT); Parainfluenza Virus Type 4 Not Detected (NOT DETECT); Respiratory Syncytial Virus A Not Detected (NOT DETECT); Respiratory Syncytial Virus B Not Detected (NOT DETECT); SARS-COV-2 Not Detected (NOT DETECT)
== END 2022-05-07 08:31 | disposition home or self-care (01) ==
PROVIDERS: Emergency Provider Family Medicine; PCP Nurse Practitioner Family
DX: Z20.822 Contact with and (suspected) exposure to COVID-19 (principal); I10 Essential (primary) hypertension; F17.210 Nicotine dependence, cigarettes, uncomplicated; F17.290 Nicotine dependence, other tobacco product, uncomplicated
CPT/HCPCS: 71045; 87635; 87804; 99283

== ENCOUNTER 2022-08-25 08:36 | Emergency (ER) | payer MEDICAID, SELFPAY ==
[2022-08-25 08:45] VITALS: BP 166/93; PULSE 85; RESP 14; TEMP 36.8; O2SAT 95; BMI 34.7
--- NOTE | 2022-08-25 08:47 | XR_ITS ---
WS: [id number] Portable AP upright chest, 08/25/2022 Clinical Data: Chest pain Comparison: Portable chest, 05/07/2022 Findings: No nodules, masses or effusions are seen. The heart is normal. The pulmonary vascularity is not increased. No pneumonia or pneumothorax is seen. XR/XR chest 1V portable [id number] Impression: Negative chest.
--- NOTE | 2022-08-25 08:55 | ECG_ITS ---
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 Measurements Intervals [place] Rate: 80 P: 61 VA: 168 QRS: 38 QRSD: 102 T: 67 QT: 368 QTc: 426 Interpretive Statements SINUS RHYTHM NONSPECIFIC T-WAVE ABNORMALITY Compared to ECG 06/14/2019 19:08:45 No significant changes Electronically Signed On 08-25-2022 17:30:31 DIVIDEND DEPOSIT VOUCHER CLERK by Martinez Acevedo M.D. [id number]
[2022-08-25 09:15] VITALS: BP 164/98; PULSE 83; O2SAT 94
[2022-08-25 09:18] LABS: Basophils # 0.1 10^3/uL (0.0-0.1); Basophils % 0.8 %; Eosinophils # 0.2 10^3/uL (0.0-0.8); Eosinophils % 2.1 %; Hematocrit 42.1 % (37.0-47.0); Hemoglobin 15.1 g/dL (11.5-15.3); Lymphocytes % 28.1 %; Mean Corpuscular HGB Conc 35.9 g/dL (30.0-36.0); Mean Corpuscular Hemoglobin 31.5 pg (28.0-34.0); Mean Corpuscular Volume 87.7 fl (81-99); Mean Platelet Volume 10.1 fL (7.4-10.4); Monocytes # 0.9 10^3/uL (0.2-0.9); Monocytes % 8.3 %; Neutrophils # 6.45 10^3/uL (1.8-7.7); Neutrophils % 60.4 %; Nucleated Red Blood Cells % 0 %; Platelet Count 252 10^3/cmm (130-400); Red Cell Distribution Width 12.2 % (12.1-15.1); White Blood Count 10.7 10^3/uL (4.0-10.0)
[2022-08-25 09:41] LABS: Alanine Aminotransferase 22 U/L (0-33); Albumin Level 4.2 g/dL (3.5-5.2); Alkaline Phosphatase 98 U/L (35-105); Anion Gap 15.1 (5-19); Aspartate Amino Transferase 15 U/L (0-32); Blood Urea Nitrogen 10 mg/dL (6-20); Calcium 9.4 mg/dL (8.5-10.5); Carbon Dioxide 26 mmol/L (22-29); Chloride 99 mmol/L (98-107); Globulin 3.1 g/dL (1.3-4.6); Glomerular Filtration Rate 92.7 mL/min (90-130); Glucose 113 mg/dL (65-115); Osmolality Calculated 284 mOsm/kg (285-295); Potassium 3.1 mmol/L (3.5-5.1); Sodium 137 mmol/L (136-145); Total Bilirubin 0.4 mg/dL (0.15-1.2); Total Protein 7.3 g/dL (6.6-8.7)
--- NOTE | 2022-08-25 10:39 | W.ED.CHESTPA ---
HPI - Chest Pain General: Chief Complaint: Chest Pain Stated Complaint: chest pain Time Seen by Provider: 08/25/22 08:45 Source: patient Mode of arrival: ambulatory History of Present Illness: 41-year-old female presents emergency room with left-sided chest pain she directs the pain to a specific point underneath her left breast. It seems to be there constantly but intermittently has sharp spasms where it will worsen. This been going on for the last couple of days it is worse this morning associated with shortness of breath when the pain becomes intense intense she does have a mild cough but has not been productive. She has no known history of coronary artery disease she is not diabetic she is a smoker. She denies any fever sweats or chills MD complaint: chest pain Onset (ago): day(s) (3) Timing of current episode: episodic Pain location: left chest Relieving factors: nothing Exacerbating factors: nothing Associated symptoms: Deny abdominal pain, dyspnea, fever(s), nausea, palpitations or vomiting Treatment prior to arrival: none Review of Systems Const: Denies: fever(s), chills, body aches, change in appetite, fatigue or malaise ENMT: Denies: throat pain, ear or mastoid pain, nasal discharge or nasal congestion Card: Reports: chest pain; Denies: palpitations, irregular heart rhythm, edema, dyspnea on exertion or orthopnea Resp: Denies: dyspnea, productive cough or non-productive cough GI: Denies: abdominal pain, nausea, vomiting, hematemesis, coffee ground emesis, diarrhea, constipation, bloating, hematochezia or melena : Denies: flank pain, difficulty voiding, dysuria, urinary frequency or urinary urgency Skin/Breast: Denies: rash or pruritus PFSH ED PFSH: Medical History Hypertension examination following vaginal delivery Surgical History No pertinent past surgical history Family History Grandmother Diabetes Paternal grandmother Maternal grandmother Heart disease Paternal grandmother Grandfather Diabetes Paternal grandfather Maternal grandfather Heart disease Paternal grandfather Father Hypertension Heart disease Hyperlipidemia Family/Other Heart disease Maternal uncle Denies family history of Colon cancer Ovarian cancer Breast cancer Family history of thyroid problem Uterine cancer Stroke Social History Smoking and tobacco status: current every day smoker (1pk daily) cigarettes Packs smoked per day: 1 Years cigarettes smoked: 20 and e-cigarettes E-cig/vape details: vaping throughout the day Quit status (tobacco): has tried quititng Number of times tried to quit tobacco: 1 Second hand smoke exposure: No Alcohol intake: never Female Reproductive History: Para: 1 Spontaneous abortions: No Physical Exam Const: GENERAL APPEARANCE: cooperative and comfortable ORIENTATION/CONSCIOUSNESS: Yes awake, Yes oriented to person, Yes oriented to place and Yes oriented to time HENMT: COMMON NORMALS: normocephalic, atraumatic and hearing grossly normal bilaterally HEAD & SCALP: normocephalic and atraumatic Resp: COMMON NORMALS: normal respiratory effort, No retractions, No use of accessory muscles and clear to auscultation bilaterally AUSCULTATION: clear to auscultation bilaterally Cardio: COMMON NORMALS: regular rate, regular rhythm and No murmurs present (Cardio) RATE: regular rate RHYTHM: regular rhythm GI: COMMON NORMALS: Soft to palpation and No hepatosplenomegaly present AUSCULTATION: Yes normoactive bowel sounds PALPATION: Yes Soft to palpation, No Tenderness to palpation present (GI), No Guarding due to palpation present (GI) and Yes No hepatosplenomegaly present Extremity: COMMON NORMALS: normal to inspection, capillary refill normal, no clubbing, cyanosis or edema, no calf tenderness and no pedal edema Neuro: SENSORIUM/ORIENTATION: Yes oriented to person, Yes oriented to place and Yes oriented to time Skin: COMMON NORMALS: no rashes or lesions noted GENERAL SKIN EXAM: no rashes or lesions noted Course Vital Signs: Vital signs: Vital Signs Temperature 98.2 F 08/25/22 08:45 Pulse Rate 100 08/25/22 13:41 Respiratory Rate 17 08/25/22 13:10 Blood Pressure 134/77 08/25/22 13:41 Pulse Oximetry 95 08/25/22 13:41 Oxygen Delivery Me thod 08/25/22 09:15 MDM - Chest Pain Medical Decision Making Cardiac enzymes and EKG reviewed are unremarkable no acute ST changes noted. Patient's description of symptoms sound more GI she complains of a lot of reflux lately. In addition she had a mild hypokalemia she was given oral supplementation. We will start her on Protonix 40 mg daily have her take a baby aspirin follow-up with a doctor within 1 week return if she has further problems Medical Records I reviewed the patient's medical records. Lab Data I reviewed the patient's lab results. 08/25/22 09:09 08/25/22 09:09 Radiology Impressions Chest X-Ray 08/25/22 08:47 Impression: Negative chest. Laboratory Results WBC 10.7 10^3/uL (4.0-10.0) H 08/25/22 09:09 RBC 4.80 10^6/uL (4.1-5.3) 08/25/22 09:09 Hgb 15.1 g/dL (11.5-15.3) 08/25/22 09:09 Hct 42.1 % (37.0-47.0) 08/25/22 09:09 MCV 87.7 fl (81-99) 08/25/22 09:09 MCH 31.5 pg (28.0-34.0) 08/25/22 09:09 MCHC 35.9 g/dL (30.0-36.0) 08/25/22 09:09 RDW 12.2 % (12.1-15.1) 08/25/22 09:09 Plt Count 252 10^3/cmm (130-400) 08/25/22 09:09 MPV 10.1 fL (7.4-10.4) 08/25/22 09:09 Neut % (Auto) 60.4 % 08/25/22 09:09 Lymph % (Auto) 28.1 % 08/25/22 09:09 Garza % (Auto) 8.3 % 08/25/22 09:09 Eos % (Auto) 2.1 % 08/25/22 09:09 Baso % (Auto) 0.8 % 08/25/22 09:09 Neut # (Auto) 6.45 10^3/uL (1.8-7.7) 08/25/22 09:09 Lymph # (Auto) 3.0 10^3/uL (0.8-4.8) 08/25/22 09:09 Garza # (Auto) 0.9 10^3/uL (0.2-0.9) 08/25/22 09:09 Eos # (Auto) 0.2 10^3/uL (0.0-0.8) 08/25/22 09:09 Baso # (Auto) 0.1 10^3/uL (0.0-0.1) 08/25/22 09:09 Nucleated RBC % (auto) 0 % 08/25/22 09:09 Nucleated RBCs # 0.0 /100WBC 08/25/22 09:09 Sodium 137 mmol/L (136-145) 08/25/22 09:09 Potassium 3.1 mmol/L (3.5-5.1) L 08/25/22 09:09 Chloride 99 mmol/L (98-107) 08/25/22 09:09 Carbon Dioxide 26 mmol/L (22-29) 08/25/22 09:09 Anion Gap 15.1 (5-19) 08/25/22 09:09 BUN 10 mg/dL (6-20) 08/25/22 09:09 Creatinine 0.7 mg/dL (0.5-0.9) 08/25/22 09:09 GFR Calculation 92.7 mL/min (90-130) 08/25/22 09:09 Glucose 113 mg/dL (65-115) 08/25/22 09:09 Calculated Osmolality 284 mOsm/kg (285-295) L 08/25/22 09:09 Calcium 9.4 mg/dL (8.5-10.5) 08/25/22 09:09 Total Bilirubin 0.4 mg/dL (0.15-1.2) 08/25/22 09:09 AST 15 U/L (0-32) 08/25/22 09:09 ALT 22 U/L (0-33) 08/25/22 09:09 Alkaline Phosphatase 98 U/L (35-105) 08/25/22 09:09 Troponin T Baseline 6 ng/L (0-10) 08/25/22 09:09 Troponin T 120 Minute 6.00 ng/L (0-10) 08/25/22 11:45 Delta Troponin T 0 ABS# (0-10) 08/25/22 11:45 Total Protein 7.3 g/dL (6.6-8.7) 08/25/22 09:09 Albumin 4.2 g/dL (3.5-5.2) 08/25/22 09:09 Globulin 3.1 g/dL (1.3-4.6) 08/25/22 09:09 Discharge Plan Discharge Patient Disposition: Home Clinical Impression: Atypical chest pain, Chest pain due to GERD Condition: Stable Prescriptions: New Protonix 40 mg tablet,delayed release (DR/EC) 40 mg PO DAILY 56 Days Qty: 60 0RF No Action multivitamin Tablet 1 tab PO DAILY hydrochlorothiazide 25 mg tablet 25 mg PO DAILY amlodipine 10 mg tablet 10 mg PO DAILY aspirin 325 mg Capsule 325 mg PO DAILY Discharge Orders: Discharge ED (Routine); Ordered 08/25/22 Ordered By: Rainer Roper Referrals: Tereza Ibrahim, RAG INSPECTOR [Primary Care Provider] - Discharge Diet: Usual diet Discharge Activity: Resume usual activity Patient Instructions: Opioid Safety, Pain Management Activity Restrictions/Additional Instructions: You were seen today for atypical chest pain. Your cardiac enzymes and EKG were normal. Recommend that you start a stomach medicine Protonix 40 mg once daily. You should take 1 enteric-coated baby aspirin 81 mg once daily as well follow-up with your primary care doctor within the next week. Coding Level of Care Code ED Industrial Tractor Driver for Seth Bernal
[2022-08-25 10:44] LABS: Troponin(5th) Baseline 6 ng/L (0-10)
--- NOTE | 2022-08-25 12:32 | ECG_ITS ---
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 Measurements Intervals [place] Rate: 76 P: 46 AR: 180 QRS: 26 QRSD: 108 T: 70 QT: 378 QTc: 426 Interpretive Statements SINUS RHYTHM NONSPECIFIC T-WAVE ABNORMALITY Compared to ECG 08/25/2022 08:55:05 No significant changes Electronically Signed On 08-25-2022 17:32:12 LOG HOOKER by Martinez Acevedo M.D. [id number]
[2022-08-25 13:09] LABS: Troponin 5 2HR Delta 0 ABS# (0-10)
[2022-08-25 13:10] VITALS: BP 136/90; PULSE 80; RESP 17; O2SAT 91
[2022-08-25] MEDS: potassium chloride oral liq 20 mEq/15 mL UDC 40 MEQ PO (13:33)
[2022-08-25 13:41] VITALS: BP 134/77; PULSE 100; O2SAT 95
== END 2022-08-25 13:43 | disposition home or self-care (01) ==
PROVIDERS: Emergency Provider Family Medicine; PCP Nurse Practitioner Family
DX: R07.89 Other chest pain (principal); K21.9 Gastro-esophageal reflux disease without esophagitis; Z79.82 Long term (current) use of aspirin; F17.210 Nicotine dependence, cigarettes, uncomplicated; I10 Essential (primary) hypertension
CPT/HCPCS: 36415; 71045; 80053; 84484; 85025; 93005; 99285

== ENCOUNTER 2023-12-25 14:41 | Outpatient (CLI) | payer MEDICAID, SELFPAY ==
--- NOTE | 2023-12-25 14:47 | MM_ITS ---
WS: [id number] BILATERAL SCREENING DIGITAL TOMOSYNTHESIS MAMMOGRAM WITH CAD HISTORY: SCREENING COMPARISON: 03/13/2022 Bilateral CC and MLO views with tomosynthesis and synthetic mammography submitted. Computer aided det ection analyzed. Breast composition: There are scattered areas of fibroglandular density. No suspicious masses, microc alcifications or architectural distortion. MM/[place] [id number] IMPRESSION: BI-RADS: 1-Negative FOLLOW UP: 1 Year Follow-up
== END 2023-12-25 14:42 | disposition home or self-care (01) ==
PROVIDERS: PCP Nurse Practitioner Family; Visit Provider Nurse Practitioner Family
DX: Z12.31 Encounter for screening mammogram for malignant neoplasm of breast (principal)
CPT/HCPCS: 77063; 77067

== ENCOUNTER 2023-12-30 17:45 | Emergency (ER) | payer MEDICAID, SELFPAY ==
[2023-12-30 17:48] VITALS: BP 168/111; PULSE 94; RESP 22; O2SAT 96
[2023-12-30 17:55] VITALS: TEMP 36.6
[2023-12-30 18:20] LABS: Basophils # 0.1 10^3/uL (0.0-0.1); Basophils % 0.6 %; Eosinophils # 0.2 10^3/uL (0.0-0.8); Eosinophils % 1.3 %; Hematocrit 40.2 % (36-47); Lymphocytes # 3.6 10^3/uL (0.8-4.8); Lymphocytes % 30.5 %; Mean Corpuscular HGB Conc 35.1 g/dL (30-55); Mean Corpuscular Hemoglobin 31.3 pg (27-33); Mean Corpuscular Volume 89.1 fl (85-98); Mean Platelet Volume 10.2 fL (7.4-10.4); Monocytes # 0.8 10^3/uL (0.2-0.9); Monocytes % 6.8 %; Neutrophils # 7.19 10^3/uL (1.8-7.7); Neutrophils % 60.5 %; Nucleated Red Blood Cells % 0 %; Platelet Count 239 10^3/cmm (157-399); Red Blood Count 4.51 10^6/uL (3.85-5.65); Red Cell Distribution Width 12.1 % (12.1-15.1); White Blood Count 11.88 10^3/uL (3.29-11.43)
--- NOTE | 2023-12-30 18:21 | CTR_ITS ---
PROCEDURE INFORMATION: Exam: CT Abdomen And Pelvis Without Contrast Exam date and time: 12/30/2023 6:50 PM Age: 43 years old Clinical indication: Abdominal pain; Localized; Left lower quadrant (llq) TECHNIQUE: Imaging protocol: Computed tomography of the abdomen and pelvis without contrast. Radiation optimization: All CT scans at this facility use at least one of these dose optimization techniques: automated exposure control; mA and/or kV adjustment per patient size (includes targeted exams where dose is matched to clinical indication); or iterative reconstruction. COMPARISON: OB limited [id number] 06/16/2020 8:19 AM RADIATION DOSE METRICS: Total DLP (mGy-cm): 979 FINDINGS: Lungs: Subsegmental bibasilar atelectasis. The visualized lung bases are otherwise clear. Diaphragm: No evidence of diaphragmatic defect. Liver: Hepatic steatosis. No focal hepatic lesion within limitations of a noncontrast exam. Gallbladder and biliary ducts: Gallbladder is unremarkable. No evidence of intra-hepatic or extra-hepatic biliary dilatation. Pancreas: Grossly unremarkable. Spleen: Grossly unremarkable. Adrenal glands: Grossly unremarkable. Kidneys and ureters: No gross renal parenchymal abnormality. No evidence of hydronephrosis or ureteral stone. Stomach and bowel: No evidence of bowel obstruction or perienteric inflammatory changes. Appendix: Normal appendix. Intraperitoneal space: No evidence of free air or fluid collection. Vasculature: No evidence of aneurysmal dilitation of abdominal aorta. Lymph nodes: No evidence of adenopathy. Urinary bladder: Grossly unremarkable. Reproductive: Grossly unremarkable. Bones/joints: No evidence of acute fracture or aggresive osseous lesion. Soft tissues: No evidence of fluid collection or hematoma in the superficial soft tissues. CT/CT abdomen pelvis [facility] [id number] IMPRESSION: 1. No evidence of acute abnormality in the abdomen or pelvis within limitations of a noncontrast exam.
[2023-12-30 18:37] LABS: Alanine Aminotransferase 23 U/L (0-33); Albumin Level 4.5 g/dL (3.5-5.2); Alkaline Phosphatase 106 U/L (35-105); Blood Urea Nitrogen 12 mg/dL (6-20); Calcium 8.7 mg/dL (8.5-10.5); Carbon Dioxide 23 mmol/L (22-29); Chloride 104 mmol/L (98-107); Creatinine Clr Calc Pharmacy 144.5255; Glomerular Filtration Rate 109.6 mL/min (90-130); Glucose 93 mg/dL (65-115); Lipase 17 U/L (13-60); Osmolality Calculated 285 mOsm/kg (285-295); Sodium 138 mmol/L (136-145); Total Bilirubin 0.3 mg/dL (0.15-1.2); Total Protein 7.5 g/dL (6.6-8.7)
--- NOTE | 2023-12-30 18:37 | W.ED.ABDPA2 ---
Documented by User: Rainer Roper DO 01/04/24 05:53 HPI - Abdominal Pain General: Chief Complaint: Abdominal Pain Stated Complaint: lower left abd pain, numbness in feet Time Seen by Provider: 12/30/23 17:50 Source: patient Mode of arrival: ambulatory History of Present Illness: 43-year-old female presents emergency room complaining of periumbilical pain that she has had for the last several weeks seen primary care doctor the set her up for a pelvic ultrasound she refers more the pain now to the left lower quadrant and left pelvic region. She currently is having her menses. She denies any dysuria urgency or frequency fever sweats chills no hematochezia melena hematemesis coffee-ground emesis no associated nausea or vomiting or diarrhea. She has not had any history of kidney stones. She has not noticed anything that exacerbates or relieves it. MD elicited complaint: abdominal pain Onset (ago): week(s) Pain Consistency: intermittent Location: LLQ Severity: moderate Quality: cramping Exacerbating factors: nothing Relieving factors: nothing Associated Symptoms: Reports nausea; Denies anorexia, belching, bloating, change in bowel habits, change in stool character, chills, coffee ground emesis, constipation, GI cramping, diarrhea, dyspepsia, dysuria, excessive flatus, fever(s), heartburn, hematochezia, hematuria, hematemesis, fecal incontinence, loose stools, melena, poor appetite, syncope and vomiting Review of Systems Const: Denies: fever(s) or chills Card: Denies: chest pain or syncope Resp: Denies: dyspnea GI: Reports: abdominal pain and nausea; Denies: vomiting, hematemesis, coffee ground emesis, heartburn, diarrhea, constipation, bloating, GI cramping, belching, excessive flatus, fecal incontinence, change in bowel habits, change in stool character, hematochezia or melena : Denies: dysuria, urinary frequency, urinary urgency or hematuria Musc: Denies: neck pain or back pain Skin/Breast: Denies: rash PFSH ED PFSH: Medical History examination following vaginal delivery Hypertension Surgical History No pertinent past surgical history Family History Grandmother Diabetes Paternal grandmother Maternal grandmother Heart disease Paternal grandmother Grandfather Diabetes Paternal grandfather Maternal grandfather Heart disease Paternal grandfather Father Hypertension Heart disease Hyperlipidemia Family/Other Heart disease Maternal uncle Denies family history of Colon cancer Ovarian cancer Breast cancer Family history of thyroid problem Uterine cancer Stroke Social History Smoking and tobacco/nicotine status: current every day tobacco/nicotine user (1pk daily) cigarettes Packs smoked per day: 1 Years cigarettes smoked: 20 and e-cigarettes E-cig/vape details: vaping throughout the day Quit status (tobacco/nicotine): has tried quititng Number of times tried to quit tobacco: 1 Second hand smoke exposure: No Alcohol intake: never Substance/Drug Use: never Female Reproductive History: Para: 1 Spontaneous abortions: No Physical Exam Const: GENERAL APPEARANCE: cooperative and comfortable ORIENTATION/CONSCIOUSNESS: Yes awake, Yes oriented to person, Yes oriented to place and Yes oriented to time HENMT: COMMON NORMALS: normocephalic, atraumatic and hearing grossly normal bilaterally HEAD & SCALP: normocephalic and atraumatic Resp: COMMON NORMALS: normal respiratory effort, No retractions, No use of accessory muscles and clear to auscultation bilaterally AUSCULTATION: clear to auscultation bilaterally Cardio: COMMON NORMALS: regular rate, regular rhythm and No murmurs present (Cardio) RATE: regular rate RHYTHM: regular rhythm GI: COMMON NORMALS: No hepatosplenomegaly present AUSCULTATION: Yes normoactive bowel sounds PALPATION: Yes Tenderness to palpation present (GI) Details: LLQ, No Guarding due to palpation present (GI) and Yes No hepatosplenomegaly present Extremity: COMMON NORMALS: normal to inspection, capillary refill normal, no clubbing, cyanosis or edema, no calf tenderness and no pedal edema Neuro: SENSORIUM/ORIENTATION: Yes oriented to person, Yes oriented to place and Yes oriented to time Skin: COMMON NORMALS: no rashes or lesions noted GENERAL SKIN EXAM: no rashes or lesions noted Course Vital Signs: Vital signs: Vital Signs Temperature 97.9 F 12/30/23 17:55 Pulse Rate 73 12/30/23 21:12 Respiratory Rate 16 12/30/23 21:12 Blood Pressure 149/93 12/30/23 21:12 Pulse Oximetry 97 12/30/23 21:12 Oxygen Delivery Me thod Room Air 12/30/23 19:39 MDM - Abdominal Pain Medical Decision Making Care signed out to Dr. Kincaid at change of shift. See final notes for diagnosis and disposition. Medical Records I reviewed the patient's medical records. Lab Data I reviewed the patient's lab results. 12/30/23 18:10 12/30/23 18:10 Labs/Radiology: Radiology Impressions Abdomen/Pelvis CT 12/30/23 18:21 IMPRESSION: 1. No evidence of acute abnormality in the abdomen or pelvis within limitations of a noncontrast exam. Laboratory Results WBC 11.88 10^3/uL (3.29-11.43) H 12/30/23 18:10 RBC 4.51 10^6/uL (3.85-5.65) 12/30/23 18:10 Hgb 14.10 g/dL (11.27-16.99) 12/30/23 18:10 Hct 40.2 % (36-47) 12/30/23 18:10 MCV 89.1 fl (85-98) 12/30/23 18:10 MCH 31.3 pg (27-33) 12/30/23 18:10 MCHC 35.1 g/dL (30-55) 12/30/23 18:10 RDW 12.1 % (12.1-15.1) 12/30/23 18:10 Plt Count 239 10^3/cmm (157-399) 12/30/23 18:10 MPV 10.2 fL (7.4-10.4) 12/30/23 18:10 Neut % (Auto) 60.5 % 12/30/23 18:10 Lymph % (Auto) 30.5 % 12/30/23 18:10 Amador % (Auto) 6.8 % 12/30/23 18:10 Eos % (Auto) 1.3 % 12/30/23 18:10 Baso % (Auto) 0.6 % 12/30/23 18:10 Neut # (Auto) 7.19 10^3/uL (1.8-7.7) 12/30/23 18:10 Lymph # (Auto) 3.6 10^3/uL (0.8-4.8) 12/30/23 18:10 Amador # (Auto) 0.8 10^3/uL (0.2-0.9) 12/30/23 18:10 Eos # (Auto) 0.2 10^3/uL (0.0-0.8) 12/30/23 18:10 Baso # (Auto) 0.1 10^3/uL (0.0-0.1) 12/30/23 18:10 Nucleated RBC % (auto) 0 % 12/30/23 18:10 Nucleated RBCs # 0.0 /100WBC 12/30/23 18:10 Sodium 138 mmol/L (136-145) 12/30/23 18:10 Potassium 3.7 mmol/L (3.5-5.1) 12/30/23 18:10 Chloride 104 mmol/L (98-107) 12/30/23 18:10 Carbon Dioxide 23 mmol/L (22-29) 12/30/23 18:10 Anion Gap 14.7 (5-19) 12/30/23 18:10 BUN 12 mg/dL (6-20) 12/30/23 18:10 Creatinine 0.6 mg/dL (0.5-0.9) 12/30/23 18:10 GFR Calculation 109.6 mL/min (90-130) 12/30/23 18:10 Glucose 93 mg/dL (65-115) 12/30/23 18:10 Calculated Osmolality 285 mOsm/kg (285-295) 12/30/23 18:10 Calcium 8.7 mg/dL (8.5-10.5) 12/30/23 18:10 Total Bilirubin 0.3 mg/dL (0.15-1.2) 12/30/23 18:10 AST 18 U/L (0-32) 12/30/23 18:10 ALT 23 U/L (0-33) 12/30/23 18:10 Alkaline Phosphatase 106 U/L (35-105) H 12/30/23 18:10 Total Protein 7.5 g/dL (6.6-8.7) 12/30/23 18:10 Albumin 4.5 g/dL (3.5-5.2) 12/30/23 18:10 Globulin 3.0 g/dL (1.3-4.6) 12/30/23 18:10 Lipase 17 U/L (13-60) 12/30/23 18:10 HCG, Qual Negative (Negative) 12/30/23 18:39 Urine Color Yellow (Yellow) 12/30/23 18:32 Urine Appearance Clear (CLEAR) 12/30/23 18:32 Urine pH 6.5 (5-7) 12/30/23 18:32 Ur Specific [place] 1.015 (1.005-1.030) 12/30/23 18:32 Urine Protein Neg (Negative) 12/30/23 18:32 Urine Glucose (UA) Norm (Normal) 12/30/23 18:32 Urine Ketones 1+ (Negative) H 12/30/23 18:32 Urine Blood Neg (Negative) 12/30/23 18:32 Urine Nitrate Negative (Negative) 12/30/23 18:32 Urine Bilirubin Neg (Negative) 12/30/23 18:32 Urine Urobilinogen 4 mg/dL (Negative) H 12/30/23 18:32 Ur Leukocyte Esterase Negative (Negative) 12/30/23 18:32 Discharge Plan Discharge Patient Disposition: Home Clinical Impression: Abdominal pain Qualifiers: Abdominal location: periumbilical Qualified Code(s): R10.33 - Periumbilical pain Condition: Stable Prescriptions: No Action multivitamin Tablet 1 tab PO DAILY amlodipine 10 mg tablet 10 mg PO DAILY tranexamic acid 650 mg tablet 1,300 mg PO TID 5 Days Qty: 30 0RF aspirin 325 mg Capsule 325 mg PO DAILY Discharge Orders: Discharge ED (Routine); Ordered 12/30/23 Ordered By: Rafael Kincaid Referrals: Tereza Ibrahim, CUSTOMER SERVICE ENGINEER [Primary Care Provider] - 1 week Patient Instructions: Abdominal Pain (ED) Activity Restrictions/Additional Instructions: Your evaluated in the ER by physical exam, lab work and imaging, all of which was unremarkable and definitively diagnosing the cause of abdominal pain. Your lab work was benign and your CT scan did not show any acute findings. Please follow-up with your family practice physician in the next 7 to 10 days for further evaluation and treatment. Coding Level of Care Code ED Color Depositing Machine Tender for Chg Fwd Documented by User: Rafael Kincaid DO 12/31/23 03:15 HPI - Abdominal Pain General: Chief Complaint: Abdominal Pain Stated Complaint: lower left abd pain, numbness in feet Time Seen by Provider: 12/30/23 17:50 PFSH ED PFSH: Medical History examination following vaginal delivery Hypertension Surgical History No pertinent past surgical history Family History Grandmother Diabetes Paternal grandmother Maternal grandmother Heart disease Paternal grandmother Grandfather Diabetes Paternal grandfather Maternal grandfather Heart disease Paternal grandfather Father Hypertension Heart disease Hyperlipidemia Family/Other Heart disease Maternal uncle Denies family history of Colon cancer Ovarian cancer Breast cancer Family history of thyroid problem Uterine cancer Stroke Social History Smoking and tobacco/nicotine status: current every day tobacco/nicotine user (1pk daily) cigarettes Packs smoked per day: 1 Years cigarettes smoked: 20 and e-cigarettes E-cig/vape details: vaping throughout the day Quit status (tobacco/nicotine): has tried quititng Number of times tried to quit tobacco: 1 Second hand smoke exposure: No Alcohol intake: never Substance/Drug Use: never Course Vital Signs: Vital signs: Vital Signs Temperature 97.9 F 12/30/23 17:55 Pulse Rate 73 12/30/23 21:12 Respiratory Rate 16 12/30/23 21:12 Blood Pressure 149/93 12/30/23 21:12 Pulse Oximetry 97 12/30/23 21:12 Oxygen Delivery Me thod Room Air 12/30/23 19:39 MDM - Abdominal Pain Medical Decision Making Care signed out to Dr. Kincaid at change of shift. See final notes for diagnosis and disposition. Patient transferred over to my care shift change, lab work was reviewed will read on abdomen pelvis CT scan. Once the abdomen pelvis CT scan come back it showed no acute abnormality within the pelvis. Patient is is already asking nursing if she can go home. These results was discussed with the patient. Patient be discharged home. Lab Data 12/30/23 18:10 12/30/23 18:10 Labs/Radiology: Radiology Impressions Abdomen/Pelvis CT 12/30/23 18:21 IMPRESSION: 1. No evidence of acute abnormality in the abdomen or pelvis within limitations of a noncontrast exam. Laboratory Results WBC 11.88 10^3/uL (3.29-11.43) H 12/30/23 18:10 RBC 4.51 10^6/uL (3.85-5.65) 12/30/23 18:10 Hgb 14.10 g/dL (11.27-16.99) 12/30/23 18:10 Hct 40.2 % (36-47) 12/30/23 18:10 MCV 89.1 fl (85-98) 12/30/23 18:10 MCH 31.3 pg (27-33) 12/30/23 18:10 MCHC 35.1 g/dL (30-55) 12/30/23 18:10 RDW 12.1 % (12.1-15.1) 12/30/23 18:10 Plt Count 239 10^3/cmm (157-399) 12/30/23 18:10 MPV 10.2 fL (7.4-10.4) 12/30/23 18:10 Neut % (Auto) 60.5 % 12/30/23 18:10 Lymph % (Auto) 30.5 % 12/30/23 18:10 Amador % (Auto) 6.8 % 12/30/23 18:10 Eos % (Auto) 1.3 % 12/30/23 18:10 Baso % (Auto) 0.6 % 12/30/23 18:10 Neut # (Auto) 7.19 10^3/uL (1.8-7.7) 12/30/23 18:10 Lymph # (Auto) 3.6 10^3/uL (0.8-4.8) 12/30/23 18:10 Amador # (Auto) 0.8 10^3/uL (0.2-0.9) 12/30/23 18:10 Eos # (Auto) 0.2 10^3/uL (0.0-0.8) 12/30/23 18:10 Baso # (Auto) 0.1 10^3/uL (0.0-0.1) 12/30/23 18:10 Nucleated RBC % (auto) 0 % 12/30/23 18:10 Nucleated RBCs # 0.0 /100WBC 12/30/23 18:10 Sodium 138 mmol/L (136-145) 12/30/23 18:10 Potassium 3.7 mmol/L (3.5-5.1) 12/30/23 18:10 Chloride 104 mmol/L (98-107) 12/30/23 18:10 Carbon Dioxide 23 mmol/L (22-29) 12/30/23 18:10 Anion Gap 14.7 (5-19) 12/30/23 18:10 BUN 12 mg/dL (6-20) 12/30/23 18:10 Creatinine 0.6 mg/dL (0.5-0.9) 12/30/23 18:10 GFR Calculation 109.6 mL/min (90-130) 12/30/23 18:10 Glucose 93 mg/dL (65-115) 12/30/23 18:10 Calculated Osmolality 285 mOsm/kg (285-295) 12/30/23 18:10 Calcium 8.7 mg/dL (8.5-10.5) 12/30/23 18:10 Total Bilirubin 0.3 mg/dL (0.15-1.2) 12/30/23 18:10 AST 18 U/L (0-32) 12/30/23 18:10 ALT 23 U/L (0-33) 12/30/23 18:10 Alkaline Phosphatase 106 U/L (35-105) H 12/30/23 18:10 Total Protein 7.5 g/dL (6.6-8.7) 12/30/23 18:10 Albumin 4.5 g/dL (3.5-5.2) 12/30/23 18:10 Globulin 3.0 g/dL (1.3-4.6) 12/30/23 18:10 Lipase 17 U/L (13-60) 12/30/23 18:10 HCG, Qual Negative (Negative) 12/30/23 18:39 Urine Color Yellow (Yellow) 12/30/23 18:32 Urine Appearance Clear (CLEAR) 12/30/23 18:32 Urine pH 6.5 (5-7) 12/30/23 18:32 Ur Specific [place] 1.015 (1.005-1.030) 12/30/23 18:32 Urine Protein Neg (Negative) 12/30/23 18:32 Urine Glucose (UA) Norm (Normal) 12/30/23 18:32 Urine Ketones 1+ (Negative) H 12/30/23 18:32 Urine Blood Neg (Negative) 12/30/23 18:32 Urine Nitrate Negative (Negative) 12/30/23 18:32 Urine Bilirubin Neg (Negative) 12/30/23 18:32 Urine Urobilinogen 4 mg/dL (Negative) H 12/30/23 18:32 Ur Leukocyte Esterase Negative (Negative) 12/30/23 18:32 All radiology interpretation(s) finalized by discharge Discharge Plan Discharge Patient Disposition: Home Clinical Impression: Abdominal pain Qualifiers: Abdominal location: periumbilical Qualified Code(s): R10.33 - Periumbilical pain Condition: Stable Prescriptions: No Action multivitamin Tablet 1 tab PO DAILY amlodipine 10 mg tablet 10 mg PO DAILY tranexamic acid 650 mg tablet 1,300 mg PO TID 5 Days Qty: 30 0RF aspirin 325 mg Capsule 325 mg PO DAILY Discharge Orders: Discharge ED (Routine); Ordered 12/30/23 Ordered By: Rafael Kincaid Referrals: Tereza Ibrahim, CUSTOMER SERVICE ENGINEER [Primary Care Provider] - 1 week Patient Instructions: Abdominal Pain (ED) Activity Restrictions/Additional Instructions: Your evaluated in the ER by physical exam, lab work and imaging, all of which was unremarkable and definitively diagnosing the cause of abdominal pain. Your lab work was benign and your CT scan did not show any acute findings. Please follow-up with your family practice physician in the next 7 to 10 days for further evaluation and treatment. Coding Level of Care Code ED Color Depositing Machine Tender for Seth Bernal
[2023-12-30 18:39] LABS: Anion Gap 14.7 (5-19); Aspartate Amino Transferase 18 U/L (0-32); Potassium 3.7 mmol/L (3.5-5.1)
[2023-12-30 18:55] LABS: Add Urine Microscopic? NO; Bilirubin Urine Neg (Negative); Blood Urine Neg (Negative); Glucose Urine UA Norm (Normal); Ketones Urine 1+ (Negative); Leukocyte Esterase Urine Negative (Negative); Nitrate Urine Negative (Negative); Protein Urine Neg (Negative); Specific Gravity, Urine 1.015 (1.005-1.030); Urine Appearance Clear (CLEAR); Urine Color Yellow (Yellow); Urobilinogen Urine 4 mg/dL (Negative); pH Urine 6.5 (5-7)
[2023-12-30 18:56] LABS: Charge for UA Resulting for Rev
[2023-12-30 18:57] LABS: HCG, Serum Qual Negative (Negative)
[2023-12-30 19:06] VITALS: PULSE 80; RESP 14; O2SAT 98
[2023-12-30 19:39] VITALS: BP 136/92; PULSE 73; RESP 14; O2SAT 97
[2023-12-30 21:12] VITALS: BP 149/93; PULSE 73; RESP 16; O2SAT 97
== END 2023-12-30 21:12 | disposition home or self-care (01) ==
PROVIDERS: Emergency Provider Family Medicine; PCP Nurse Practitioner Family
DX: R10.33 Periumbilical pain (principal); Z79.82 Long term (current) use of aspirin; I10 Essential (primary) hypertension; F17.210 Nicotine dependence, cigarettes, uncomplicated; F17.290 Nicotine dependence, other tobacco product, uncomplicated
CPT/HCPCS: 51701; 74176; 80053; 81003; 83690; 84703; 85025; 99284

== ENCOUNTER 2024-01-15 08:57 | Outpatient (CLI) | payer MEDICAID, SELFPAY ==
--- NOTE | 2024-01-15 08:59 | US_ITS ---
WS: [id number] Complete ABDOMINAL ULTRASOUND HISTORY: LLQ ABDOMINAL PAIN COMPARISON: CT 12/30/2023 Liver: 16.8 cm in length. Liver is top normal size with coarse echotexture. No mass. Portal Vein: Normal hepatopetal flow with monophasic waveform. Gallbladder: Normally distended gallbladder with no stones or wall thickening. CBD: 0.3 cm Pancreas: Not visualized. Right kidney: 11.4 cm x 5.2 x 5.2 cm. Cortex: 1.2 cm. Normal size and echogenicity. No hydronephrosis or mass. Left kidney: 11.2 cm x 5.3 cm x 4.8 cm. Cortex: 1.5 cm. Normal size and echogenicity. No hydronephrosis or mass. Spleen: 10.5 cm. Normal size and echogenicity. Aorta and IVC: Unremarkable abdominal aorta and IVC. US/US abdomen complete* [id number] Impression: 1. Quality is compromised by patient's body habitus. 2. Hepatic steatosis. 3. Negative gallbladder. 4. No hydronephrosis.
--- NOTE | 2024-01-15 08:59 | US_ITS ---
WS: [id number] US pelvic complete* [id number] HISTORY: LLQ ABD PAIN COMPARISON: None available. Uterus: 9.2 cm x 6.1 cm x 4.1 cm. Normal size anteverted uterus. No fibroid or mass. Endometrium: 1.8 cm. Endometrium is just slightly enlarged with very mild heterogeneity. This could b e related to the stage within the menstrual cycle. Right ovary: 3.1 cm x 2.6 cm x 2.4 cm. Normal size and vascularity, no cystic or solid masses. Small follicles. Left ovary: 3.9 cm x 2.4 cm x 2.3 cm. Normal size and vascularity, no cystic or solid masses. Small f ollicles. No free fluid in the cul-de-sac. US/US pelvic complete* [id number] IMPRESSION: 1. Very minimally thickened and heterogeneous endometrium. No discrete mass. T his may be related to the stage of menstrual cycle. 2. No ovarian mass or cyst.
== END 2024-01-15 08:58 | disposition home or self-care (01) ==
LOC: RAD 08:57
PROVIDERS: PCP Nurse Practitioner Family; Visit Provider Nurse Practitioner Family
DX: R10.32 Left lower quadrant pain (principal); K76.0 Fatty (change of) liver, not elsewhere classified
CPT/HCPCS: 76700; 76856

== ENCOUNTER 2024-07-11 23:10 | Emergency (ER) | payer OTHER, SELFPAY ==
[2024-07-11 23:18] VITALS: BP 155/103; PULSE 85; RESP 18; TEMP 36.4; O2SAT 98
--- NOTE | 2024-07-11 23:23 | ECG_ITS ---
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 Measurements Intervals Howard Rate: 84 P: 58 NM: 169 QRS: 25 QRSD: 95 T: 63 QT: 345 QTc: 409 Interpretive Statements SINUS RHYTHM NONSPECIFIC T-WAVE ABNORMALITY Compared to ECG 08/25/2022 12:32:19 No significant changes Electronically Signed On 07-12-2024 23:59:35 P[employer]LING SOLUTION [employer]KER by Lisset Banda M.D. [email or web address]
[2024-07-12] VITALS (7 sets, daily range): BP systolic 136–142; BP diastolic 71–85; PULSE 73–86; O2SAT 94–99
--- NOTE | 2024-07-12 01:11 | XRR_ITS ---
PROCEDURE INFORMATION: Exam: XR Chest Exam date and time: 07/12/2024 1:12 AM Age: 43 years old Clinical indication: Other: HTN; Additional info: Hypertension, palpitations TECHNIQUE: Imaging protocol: Radiologic exam of the chest. Views: 1 view. COMPARISON: CR XR chest 1V portable [id number] 25/08/2022 09:14 FINDINGS: Lungs: Unremarkable. No consolidation. Pleural spaces: Unremarkable. No pleural effusion. No pneumothorax. Heart/Mediastinum: Stable cardiomediastinal silhouette. Bones/joints: Unremarkable. XR/XR chest 1V portable [id number] IMPRESSION: No evidence of active cardiopulmonary disease.
--- NOTE | 2024-07-12 01:14 | ED_ITS ---
HPI - Arrhythmia/Palpitations 2 General: Chief Complaint: Arrhythmia/Palpitations Stated Complaint: BP High Time Seen by Provider: 07/12/24 01:11 History of Present Illness: Patient presents to the ER with complaints of high blood pressure and dizziness. She got dizzy a few hours ago so she checked her blood pressure and initially was 157/107 she waited a couple hours and rechecked it it was 152/107 so she decided to come in for further evaluation. Patient is on amlodipine 10 mg and lisinopril. Patient is feeling little bit better now. Patient's blood pressure is currently 138/89. Related Data Home Medications Medication Instructions Recorded Confirmed amlodipine 10 mg tablet 10 mg PO DAILY 11/15/20 04/16/23 multivitamin 1 tab PO DAILY 11/16/20 04/16/23 aspirin 325 mg capsule 325 mg PO DAILY 08/25/22 04/16/23 Previous Rx's Medication Instructions Recorded tranexamic acid 650 mg tablet 1,300 mg (2 x 650 mg) PO TID 5 09/29/23 days #30 tabs Allergies Allergy/AdvReac Type Severity Reaction Status Date / Time No Known Allergies Allergy Verified 07/11/24 23:23 Review of Systems 2 General: Reports: 10 or more systems reviewed and unremarkable except in HPI and below PFSH ED 2 PFSH: Medical History examination following vaginal delivery Hypertension Surgical History No pertinent past surgical history Family History Grandmother Diabetes Paternal grandmother Maternal grandmother Heart disease Paternal grandmother Grandfather Diabetes Paternal grandfather Maternal grandfather Heart disease Paternal grandfather Father Hypertension Heart disease Hyperlipidemia Family/Other Heart disease Maternal uncle Denies family history of Colon cancer Ovarian cancer Breast cancer Family history of thyroid problem Uterine cancer Stroke Social History Smoking and tobacco/nicotine status: current every day tobacco/nicotine user (1pk daily) cigarettes Packs smoked per day: 1 Years cigarettes smoked: 20 and e-cigarettes E-cig/vape details: vaping throughout the day Quit status (tobacco/nicotine): has tried quititng Number of times tried to quit tobacco: 1 Second hand smoke exposure: No Alcohol intake: never Substance/Drug Use: never Female Reproductive History: Date of last menstrual period: 06/23/24 Para: 1 Spontaneous abortions: No Physical Exam 2 Const: COMMON NORMALS: no acute distress, average body habitus, patient oriented x3, no limitations, healthy appearing, alert and well nourished HENMT: COMMON NORMALS: normocephalic, atraumatic, hearing grossly normal bilaterally, external ears normal, Normal external nose present and moist oral mucous membranes HEAD & SCALP: normocephalic and atraumatic NOSE: Normal external nose present EXTERNAL EAR: Yes external ears normal Eye: COMMON NORMALS: Equal, round and reactive pupils present, EOMs intact bilaterally, conjunctivae normal and no scleral icterus CONJUNCTIVA: Yes conjunctivae normal PUPIL: Yes Equal, round and reactive pupils present Neck/C-Spine: COMMON NORMALS: no JVD Chest: COMMONS NORMALS: normal inspection of the chest and normal palpation of entire chest wall Resp: COMMON NORMALS: normal respiratory effort, No retractions, No use of accessory muscles and clear to auscultation bilaterally AUSCULTATION: clear to auscultation bilaterally Cardio: COMMON NORMALS: no JVD, regular rate, regular rhythm, S1 normal heart sound present, S2 normal heart sound present, No gallops present (Cardio), No clicks present (Cardio) and No murmurs present (Cardio) RATE: regular rate RHYTHM: regular rhythm HEART SOUNDS: S1 normal heart sound present and S2 normal heart sound present GI: COMMON NORMALS: Normal to inspection, nondistended, normoactive bowel sounds present, Soft to palpation, non-tender, No hepatosplenomegaly present and no masses PALPATION: Yes Soft to palpation and Yes No hepatosplenomegaly present Neuro: COMMON NORMALS: patient oriented x3 SENSORIUM/ORIENTATION: Yes alert Course 2 Vital Signs: Vital signs: Vital Signs Temperature 97.5 F L 07/11/24 23:18 Pulse Rate 84 07/12/24 03:30 Respiratory Rate 18 07/11/24 23:18 Blood Pressure 142/71 07/12/24 01:23 Pulse Oximetry 94 07/12/24 03:30 Oxygen Delivery Me thod Room Air 07/12/24 03:30 MDM - Arrhythmia/Palpitations Medical Decision Making Lab work was obtained which essentially unremarkable, chest x-ray unremarkable, these results was discussed with the patient. Patient be discharged home. Medical Records I reviewed the patient's medical records. Lab Data I reviewed the patient's lab results. 07/12/24 01:33 07/12/24 01:33 Radiology Impressions Chest X-Ray 07/12/24 01:11 IMPRESSION: No evidence of active cardiopulmonary disease. Laboratory Results WBC 11.94 10^3/uL (3.29-11.43) H 07/12/24 01:33 RBC 4.68 10^6/uL (3.85-5.65) 07/12/24 01:33 Hgb 14.30 g/dL (11.27-16.99) 07/12/24 01:33 Hct 42.9 % (36-47) 07/12/24 01:33 MCV 91.7 fl (85-98) 07/12/24 01:33 MCH 30.6 pg (27-33) 07/12/24 01:33 MCHC 33.3 g/dL (30-55) 07/12/24 01:33 RDW 12.4 % (12.1-15.1) 07/12/24 01:33 Plt Count 237 10^3/cmm (157-399) 07/12/24 01:33 MPV 9.9 fL (7.4-10.4) 07/12/24 01:33 Neut % (Auto) 58.5 % 07/12/24 01:33 Lymph % (Auto) 30.2 % 07/12/24 01:33 Jack % (Auto) 8.3 % 07/12/24 01:33 Eos % (Auto) 2.0 % 07/12/24 01:33 Baso % (Auto) 0.7 % 07/12/24 01:33 Neut # (Auto) 6.99 10^3/uL (1.8-7.7) 07/12/24 01:33 Lymph # (Auto) 3.6 10^3/uL (0.8-4.8) 07/12/24 01:33 Jack # (Auto) 1.0 10^3/uL (0.2-0.9) H 07/12/24 01:33 Eos # (Auto) 0.2 10^3/uL (0.0-0.8) 07/12/24 01:33 Baso # (Auto) 0.1 10^3/uL (0.0-0.1) 07/12/24 01:33 Nucleated RBC % (auto) 0 % 07/12/24 01:33 Nucleated RBCs # 0.0 /100WBC 07/12/24 01:33 Sodium 134 mmol/L (136-145) L 07/12/24 01:33 Potassium 3.8 mmol/L (3.5-5.1) 07/12/24 01:33 Chloride 101 mmol/L (98-107) 07/12/24 01:33 Carbon Dioxide 21 mmol/L (22-29) L 07/12/24 01:33 Anion Gap 15.8 (5-19) 07/12/24 01:33 BUN 9 mg/dL (6-20) 07/12/24 01:33 Creatinine 0.7 mg/dL (0.5-0.9) 07/12/24 01:33 GFR Calculation 91.8 mL/min (90-130) 07/12/24 01:33 Glucose 104 mg/dL (65-115) 07/12/24 01:33 Calculated Osmolality 277 mOsm/kg (285-295) L 07/12/24 01:33 Calcium 9.0 mg/dL (8.5-10.5) 07/12/24 01:33 Total Bilirubin 0.4 mg/dL (0.15-1.2) 07/12/24 01:33 AST 14 U/L (0-32) 07/12/24 01:33 ALT 17 U/L (0-33) 07/12/24 01:33 Alkaline Phosphatase 104 U/L (35-105) 07/12/24 01:33 C-Reactive Protein 6.1 mg/L (0.0-4.9) H 07/12/24 01:33 Total Protein 7.0 g/dL (6.6-8.7) 07/12/24 01:33 Albumin 4.0 g/dL (3.5-5.2) 07/12/24 01:33 Globulin 3.0 g/dL (1.3-4.6) 07/12/24 01:33 Urine Color Yellow (Yellow) 07/12/24 03:40 Urine Appearance Clear (CLEAR) 07/12/24 03:40 Urine pH 6.0 (5-7) 07/12/24 03:40 Ur Specific [place] 1.008 (1.005-1.030) 07/12/24 03:40 Urine Protein Negative (Negative) 07/12/24 03:40 Urine Glucose (UA) Negative (Normal) 07/12/24 03:40 Urine Ketones Negative (Negative) 07/12/24 03:40 Urine Blood Negative (Negative) 07/12/24 03:40 Urine Nitrate Negative (Negative) 07/12/24 03:40 Urine Bilirubin Negative (Negative) 07/12/24 03:40 Urine Urobilinogen 0.2 mg/dL (Negative) 07/12/24 03:40 Ur Leukocyte Esterase Negative (Negative) 07/12/24 03:40 Urine RBC 0-2 /hpf (0-2) 07/12/24 03:40 Urine WBC 0-5 /hpf (0-5) 07/12/24 03:40 Ur Squamous Epith Cells 0-5 /hpf (0-5) 07/12/24 03:40 Amorphous Sediment Not Reportable 07/12/24 03:40 Urine Bacteria None seen /hpf (NONE) 07/12/24 03:40 Hyaline Casts 0-4 /lpf H 07/12/24 03:40 Hep Bs Antigen Non-reactive (Nonreactive) 07/12/24 01:33 Hep Bs Antibody > 1000.0 (11.5-1000) H 07/12/24 01:33 Hepatitis C Antibody Non-reactive (Nonreactive) 07/12/24 01:33 HIV 1&2 Ab & HIV 1 Ag Non-reactive (Non-Reactiv) 07/12/24 01:33 HIV 1&2 Antibody Non-reactive (Non-Reactiv) 07/12/24 01:33 All radiology interpretation(s) finalized by discharge Discharge Plan Discharge Patient Disposition: Home Clinical Impression: Hypertension, Dizziness Condition: Stable Prescriptions: No Action multivitamin Tablet 1 tab PO DAILY amlodipine 10 mg tablet 10 mg PO DAILY tranexamic acid 650 mg tablet 1,300 mg PO TID 5 Days Qty: 30 0RF aspirin 325 mg Capsule 325 mg PO DAILY Discharge Orders: Discharge ED (Routine); Ordered 07/12/24 Ordered By: Rafael Kincaid Referrals: Tereza Ibrahim FNP [Primary Care Provider] - 1 week Patient Instructions: Hypertension (ED), Dizziness (ED) Activity Restrictions/Additional Instructions: Thank you for choosing [facility] for your healthcare needs today. Please realize that you were seen in the emergency department and that we are providing you with an emergency medical screening exam and this may not be a complete and all exclusive of all testing and/or medical workup we may need to determine your element or severity of your illness. It is very important that you follow-up as instructed with your primary care provider or specialist for the additional evaluation and to discuss your medical treatment plan. You may return to the emergency department should you have concerns or if your condition changes or worsens in any way. Coding Level of Care Code ED Teacher Public Health for Seth Bernal
[2024-07-12 01:38] LABS: Basophils # 0.1 10^3/uL (0.0-0.1); Basophils % 0.7 %; Eosinophils # 0.2 10^3/uL (0.0-0.8); Hematocrit 42.9 % (36-47); Lymphocytes # 3.6 10^3/uL (0.8-4.8); Lymphocytes % 30.2 %; Mean Corpuscular HGB Conc 33.3 g/dL (30-55); Mean Corpuscular Hemoglobin 30.6 pg (27-33); Mean Corpuscular Volume 91.7 fl (85-98); Mean Platelet Volume 9.9 fL (7.4-10.4); Monocytes % 8.3 %; Neutrophils # 6.99 10^3/uL (1.8-7.7); Neutrophils % 58.5 %; Nucleated Red Blood Cells % 0 %; Platelet Count 237 10^3/cmm (157-399); Red Blood Count 4.68 10^6/uL (3.85-5.65); Red Cell Distribution Width 12.4 % (12.1-15.1); White Blood Count 11.94 10^3/uL (3.29-11.43)
[2024-07-12 01:59] LABS: Alanine Aminotransferase 17 U/L (0-33); Alkaline Phosphatase 104 U/L (35-105); Aspartate Amino Transferase 14 U/L (0-32); Blood Urea Nitrogen 9 mg/dL (6-20); C Reactive Protein 6.1 mg/L (0.0-4.9); Carbon Dioxide 21 mmol/L (22-29); Chloride 101 mmol/L (98-107); Creatinine Clr Calc Pharmacy 126.2775; Glomerular Filtration Rate 91.8 mL/min (90-130); Glucose 104 mg/dL (65-115); Osmolality Calculated 277 mOsm/kg (285-295); Sodium 134 mmol/L (136-145); Total Bilirubin 0.4 mg/dL (0.15-1.2)
[2024-07-12 02:01] LABS: Anion Gap 15.8 (5-19); Potassium 3.8 mmol/L (3.5-5.1)
[2024-07-12 03:04] LABS: Hepatitis B Surface Antigen Non-Reactive (Nonreactive); Hepatitis C Virus Antibody Non-Reactive (Nonreactive)
[2024-07-12 03:06] LABS: HIV 1 & 2 Antigen Non-Reactive (Non-Reactiv)
[2024-07-12 03:07] LABS: HIV 1 & 2 Antibody Non-Reactive (Non-Reactiv)
[2024-07-12 03:20] LABS: Hepatitis B Surface AB > 1000.0 (11.5-1000)
[2024-07-12 03:51] LABS: Bilirubin Urine Negative (Negative); Blood Urine Negative (Negative); Glucose Urine UA Negative (Normal); Ketones Urine Negative (Negative); Leukocyte Esterase Urine Negative (Negative); Nitrate Urine Negative (Negative); Protein Urine Negative (Negative); Specific Gravity, Urine 1.008 (1.005-1.030); Urine Appearance Clear (CLEAR); Urine Color Yellow (Yellow); Urobilinogen Urine 0.2 mg/dL (Negative)
[2024-07-12 03:56] LABS: Add Urine Microscopic? YES; Bacteria Urine None Seen /hpf; Hyaline Casts Urine 0-4 /lpf; RBC Urine 0-2 /hpf (0-2); Squamous Epithelial Cell Urine 0-5 /hpf (0-5); WBC Urine 0-5 /hpf (0-5)
== END 2024-07-12 04:28 | disposition home or self-care (01) ==
PROVIDERS: Emergency Provider Emergency Medicine; PCP Nurse Practitioner Family
DX: I10 Essential (primary) hypertension (principal); R42 Dizziness and giddiness; Z79.82 Long term (current) use of aspirin; F17.210 Nicotine dependence, cigarettes, uncomplicated
CPT/HCPCS: 36415; 71045; 80053; 81001; 85025; 86140; 86706; 86803; 87340; 87806; 93005; 99285

== ENCOUNTER 2024-10-11 06:31 | Emergency (ER) | payer OTHER, SELFPAY ==
[2024-10-11 06:34] VITALS: BP 151/93; PULSE 86; RESP 18; TEMP 37.2; O2SAT 97; BMI 36.4
--- NOTE | 2024-10-11 06:39 | XRR_ITS ---
PROCEDURE INFORMATION: Exam: XR Chest Exam date and time: 10/11/2024 6:54 AM Age: 44 years old Clinical indication: Cough and dyspnea; Additional info: Dyspnea/cough TECHNIQUE: Imaging protocol: Radiologic exam of the chest. Views: 1 view. COMPARISON: CR XR chest 1V portable [id number] 07/12/2024 1:12 AM FINDINGS: Lungs: Unremarkable. No consolidation. Pleural spaces: Unremarkable. No pleural effusion. No pneumothorax. Heart/Mediastinum: Unremarkable. No cardiomegaly. Bones/joints: Unremarkable. XR/XR chest 1V portable [id number] IMPRESSION: No acute findings.
--- NOTE | 2024-10-11 06:41 | ECG_ITS ---
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 Measurements Intervals [place] Rate: 82 P: 151 OH: 166 QRS: 1 QRSD: 100 T: 150 QT: 359 QTc: 421 Interpretive Statements ECTOPIC ATRIAL RHYTHM LEFT ATRIAL ENLARGEMENT [-0.15mV P-WAVE IN V1/V2] INFERIOR MYOCARDIAL INFARCTION , PROBABLY OLD [40+ ms Q WAVE AND/OR ST/T ABNORMALITY IN II/aVF] Compared to ECG 07/11/2024 23:24:26 Ectopic atrial rhythm now present Atrial abnormality now present Myocardial infarct finding now present Sinus rhythm no longer present T-wave abnormality no longer present Electronically Signed On 10-12-2024 21:36:26 CDT by Lisset Banda M.D. [id number]
--- NOTE | 2024-10-11 06:41 | W.ED.CHESTPA ---
HPI - Chest Pain General: Chief Complaint: Chest Pain Stated Complaint: chest pain Time Seen by Provider: 10/11/24 06:39 History of Present Illness: 44-year-old female presents to the emergency room with complaint of chest pain. She describes it as a stabbing pain under her left breast that can be improved by holding her hand lifting her left breast of bed palpating across the chest wall inferior to the breast. She will get sharp spasm pains intermittently last a few seconds and are gone. She is got them at various times of the day. This been going on for the last several days. She has had a bit of a cough. At times she will notice it slightly worse with motion she is not associated with any exertion. Even the palpation seems to be intermittent in its effectiveness or relieving the discomfort. No vomiting no diarrhea. She denies any hemoptysis or hematemesis no coffee-ground emesis no flank pain no dysuria urgency or frequency. Associated symptoms: Deny abdominal pain, dyspnea or fever(s) Related Data Home Medications ?Medication ?Instructions ?Recorded ?Confirmed multivitamin 1 tab PO DAILY 11/16/20 10/11/24 Previous Rx's ?Medication ?Instructions ?Recorded cetirizine 10 mg tablet (Zyrtec) 10 mg PO DAILY #10 tabs 08/19/24 amlodipine 10 mg tablet 10 mg PO .QPM #90 tabs 09/19/24 bupropion HCl 300 mg 24 hr tablet, 300 mg PO QAM #90 tabs 09/19/24 extended release (Wellbutrin XL) lisinopril 10 mg tablet 10 mg PO QAM #90 tabs 09/19/24 diclofenac sodium 75 mg 75 mg PO Q12H PRN pain #20 tabs 10/11/24 tablet,delayed release Allergies Allergy/AdvReac Type Severity Reaction Status Date / Time No Known Allergies Allergy Verified 10/11/24 06:38 Review of Systems Const: Denies: fever(s) or chills Card: Reports: chest pain Resp: Denies: dyspnea GI: Denies: abdominal pain : Denies: dysuria, urinary frequency or urinary urgency Musc: Denies: neck pain or back pain Skin/Breast: Denies: rash PFS ED PFSH: Medical History (Updated 10/11/24 @ 09:53 by Rainer Roper DO) BMI 35.0-35.9,adult depression Gestational diabetes Hypertension Surgical History No pertinent past surgical history Family History Grandmother Diabetes Paternal grandmother Maternal grandmother Heart disease Paternal grandmother Grandfather Diabetes Paternal grandfather Maternal grandfather Heart disease Paternal grandfather Father Hypertension Heart disease Hyperlipidemia Family/Other Heart disease Maternal uncle Denies family history of Colon cancer Ovarian cancer Breast cancer Family history of thyroid problem Uterine cancer Stroke Social History Smoking and tobacco/nicotine status: current every day tobacco/nicotine user cigarettes Packs smoked per day: 1 Years cigarettes smoked: 20 and e-cigarettes E-cig/vape details: vaping throughout the day Quit status (tobacco/nicotine): has tried quititng Number of times tried to quit tobacco: 1 Second hand smoke exposure: No Alcohol intake: never Substance/Drug Use: never Female Reproductive History: Date of last menstrual period: 09/20/24 Para: 1 Spontaneous abortions: No Physical Exam Const: GENERAL APPEARANCE: cooperative ORIENTATION/CONSCIOUSNESS: Yes awake, Yes oriented to person, Yes oriented to place and Yes oriented to time HENMT: COMMON NORMALS: normocephalic, atraumatic and hearing grossly normal bilaterally HEAD & SCALP: normocephalic and atraumatic Resp: COMMON NORMALS: normal respiratory effort, No retractions, No use of accessory muscles and clear to auscultation bilaterally AUSCULTATION: clear to auscultation bilaterally Cardio: COMMON NORMALS: regular rate, regular rhythm and No murmurs present (Cardio) RATE: regular rate RHYTHM: regular rhythm GI: COMMON NORMALS: Soft to palpation and No hepatosplenomegaly present AUSCULTATION: Yes normoactive bowel sounds PALPATION: Yes Soft to palpation, No Tenderness to palpation present (GI), No Guarding due to palpation present (GI) and Yes No hepatosplenomegaly present Extremity: COMMON NORMALS: normal to inspection, capillary refill normal, no clubbing, cyanosis or edema, no calf tenderness and no pedal edema Neuro: SENSORIUM/ORIENTATION: Yes oriented to person, Yes oriented to place and Yes oriented to time Skin: COMMON NORMALS: no rashes or lesions noted GENERAL SKIN EXAM: no rashes or lesions noted Course Vital Signs: Vital signs: Vital Signs Temperature 98.9 F 10/11/24 06:34 Pulse Rate 80 10/11/24 10:20 Respiratory Rate 20 H 10/11/24 07:23 Blood Pressure 116/70 10/11/24 10:20 Pulse Oximetry 97 10/11/24 10:20 Oxygen Delivery Me thod Room Air 10/11/24 07:23 MDM - Chest Pain Medical Decision Making Cardiac enzymes negative EKG did not show any acute changes. Character of pain not suggestive of acute coronary syndrome. She still getting just sharp flashes of pain with no sustained episodes. Worse with deep inspiration at this time. Reviewed findings with the patient will discharge patient home give diclofenac to use as needed follow-up as needed with primary care. Medical Records I reviewed the patient's medical records. Lab Data I reviewed the patient's lab results. 10/11/24 06:46 10/11/24 06:46 Radiology Impressions Chest X-Ray 10/11/24 06:39 IMPRESSION: No acute findings. Laboratory Results WBC 9.94 10^3/uL (3.29-11.43) 10/11/24 06:46 RBC 4.81 10^6/uL (3.85-5.65) 10/11/24 06:46 Hgb 14.60 g/dL (11.27-16.99) 10/11/24 06:46 Hct 42.3 % (36-47) 10/11/24 06:46 MCV 87.9 fl (85-98) 10/11/24 06:46 MCH 30.4 pg (27-33) 10/11/24 06:46 MCHC 34.5 g/dL (30-55) 10/11/24 06:46 RDW 12.3 % (12.1-15.1) 10/11/24 06:46 Plt Count 251 10^3/cmm (157-399) 10/11/24 06:46 MPV 10.1 fL (7.4-10.4) 10/11/24 06:46 Neut % (Auto) 65.7 % 10/11/24 06:46 Lymph % (Auto) 25.6 % 10/11/24 06:46 [place] % (Auto) 6.2 % 10/11/24 06:46 Eos % (Auto) 1.7 % 10/11/24 06:46 Baso % (Auto) 0.6 % 10/11/24 06:46 Neut # (Auto) 6.53 10^3/uL (1.8-7.7) 10/11/24 06:46 Lymph # (Auto) 2.5 10^3/uL (0.8-4.8) 10/11/24 06:46 [place] # (Auto) 0.6 10^3/uL (0.2-0.9) 10/11/24 06:46 Eos # (Auto) 0.2 10^3/uL (0.0-0.8) 10/11/24 06:46 Baso # (Auto) 0.1 10^3/uL (0.0-0.1) 10/11/24 06:46 Nucleated RBC % (auto) 0 % 10/11/24 06:46 Nucleated RBCs # 0.0 /100WBC 10/11/24 06:46 Sodium 139 mmol/L (136-145) 10/11/24 06:46 Potassium 4.0 mmol/L (3.5-5.1) 10/11/24 06:46 Chloride 106 mmol/L (98-107) 10/11/24 06:46 Carbon Dioxide 21 mmol/L (22-29) L 10/11/24 06:46 Anion Gap 16.0 (5-19) 10/11/24 06:46 BUN 9 mg/dL (6-20) 10/11/24 06:46 Creatinine 0.7 mg/dL (0.5-0.9) 10/11/24 06:46 GFR Calculation 91.3 mL/min (90-130) 10/11/24 06:46 Glucose 208 mg/dL (65-115) H 10/11/24 06:46 Calculated Osmolality 293 mOsm/kg (285-295) 10/11/24 06:46 Calcium 9.1 mg/dL (8.5-10.5) 10/11/24 06:46 Total Bilirubin 0.2 mg/dL (0.15-1.2) 10/11/24 06:46 AST 15 U/L (0-32) 10/11/24 06:46 ALT 19 U/L (0-33) 10/11/24 06:46 Alkaline Phosphatase 125 U/L (35-105) H 10/11/24 06:46 Troponin T Baseline < 6 ng/L (0-10) 10/11/24 06:46 Troponin T 120 Minute 6.00 ng/L (0-10) 10/11/24 08:40 Delta Troponin T 0.35204 ABS# (0-10) 10/11/24 08:40 Total Protein 6.9 g/dL (6.6-8.7) 10/11/24 06:46 Albumin 4.4 g/dL (3.5-5.2) 10/11/24 06:46 Globulin 2.5 g/dL (1.3-4.6) 10/11/24 06:46 All radiology interpretation(s) finalized by discharge EKG Data EKG 1: Interpretation: EKG shows normal sinus rhythm rate of 82 Q waves in 2 [address]VF. No acute ST changes T waves inverted in V1 and 2 upright in V2 through 6. Discharge Plan Discharge Patient Disposition: Home Clinical Impression: Atypical chest pain, Chest wall pain Condition: Stable Prescriptions: New diclofenac sodium 75 mg tablet,delayed release (DR/EC) 75 mg PO Q12H PRN (Reason: pain) Qty: 20 0RF No Action multivitamin Tablet 1 tab PO DAILY lisinopril 10 mg tablet 10 mg PO QAM Qty: 90 1RF bupropion HCl [Wellbutrin XL] 300 mg tablet extended release 24 hr 300 mg PO QAM Qty: 90 1RF amlodipine 10 mg tablet 10 mg PO .QPM Qty: 90 1RF Rx Instructions: take before bedtime cetirizine [Zyrtec] 10 mg tablet 10 mg PO DAILY Qty: 10 0RF Discharge Orders: Discharge ED (Routine); Ordered 10/11/24 Ordered By: Rainer Roper Referrals: Gustabo Menendez MD [Primary Care Provider] - Discharge Diet: Usual diet Discharge Activity: Increase activity as tolerated Patient Instructions: Opioid Safety, Pain Management Activity Restrictions/Additional Instructions: Thank you for choosing [facility] for your healthcare needs today. It is very important that you follow up as instructed or that you return to the Emergency Department should you have concerns or if your condition changes or worsens in any way. You were seen in the emergency room with a complaint of sharp chest pain cardiac enzymes EKG and chest x-ray were normal. Her vital signs are otherwise normal. Based on the care of your chest pain that sounds more musculoskeletal in nature. You were given diclofenac to use as needed.. Print Language: Irish Coding Level of Care Code ED Calender Machine Operator Helper for Seth Bernal
[2024-10-11 06:47] VITALS: PULSE 60; O2SAT 100
[2024-10-11 06:51] LABS: Basophils # 0.1 10^3/uL (0.0-0.1); Basophils % 0.6 %; Eosinophils # 0.2 10^3/uL (0.0-0.8); Eosinophils % 1.7 %; Hematocrit 42.3 % (36-47); Lymphocytes # 2.5 10^3/uL (0.8-4.8); Lymphocytes % 25.6 %; Mean Corpuscular HGB Conc 34.5 g/dL (30-55); Mean Corpuscular Hemoglobin 30.4 pg (27-33); Mean Corpuscular Volume 87.9 fl (85-98); Mean Platelet Volume 10.1 fL (7.4-10.4); Monocytes # 0.6 10^3/uL (0.2-0.9); Monocytes % 6.2 %; Neutrophils # 6.53 10^3/uL (1.8-7.7); Neutrophils % 65.7 %; Nucleated Red Blood Cells % 0 %; Platelet Count 251 10^3/cmm (157-399); Red Blood Count 4.81 10^6/uL (3.85-5.65); Red Cell Distribution Width 12.3 % (12.1-15.1); White Blood Count 9.94 10^3/uL (3.29-11.43)
[2024-10-11 07:15] LABS: Alanine Aminotransferase 19 U/L (0-33); Albumin Level 4.4 g/dL (3.5-5.2); Alkaline Phosphatase 125 U/L (35-105); Aspartate Amino Transferase 15 U/L (0-32); Blood Urea Nitrogen 9 mg/dL (6-20); Calcium 9.1 mg/dL (8.5-10.5); Carbon Dioxide 21 mmol/L (22-29); Chloride 106 mmol/L (98-107); Globulin 2.5 g/dL (1.3-4.6); Glomerular Filtration Rate 91.3 mL/min (90-130); Glucose 208 mg/dL (65-115); Osmolality Calculated 293 mOsm/kg (285-295); Sodium 139 mmol/L (136-145); Total Bilirubin 0.2 mg/dL (0.15-1.2); Total Protein 6.9 g/dL (6.6-8.7)
[2024-10-11 07:23] VITALS: BP 132/69; PULSE 79; RESP 20; O2SAT 97
[2024-10-11 07:28] LABS: Troponin(5th) Baseline < 6 ng/L (0-10)
--- NOTE | 2024-10-11 08:43 | ECG_ITS ---
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 Measurements Intervals [place] Rate: 75 P: 131 OH: 167 QRS: 111 QRSD: 108 T: 132 QT: 376 QTc: 421 Interpretive Statements SINUS RHYTHM ARM LEADS REVERSED [INVERTED P AND QRS IN I] Compared to ECG 10/11/2024 06:41:09 Ectopic atrial rhythm no longer present Atrial abnormality no longer present Myocardial infarct finding no longer present Electronically Signed On 10-12-2024 21:52:02 CDT by Lisset Banda M.D. [id number]
[2024-10-11 09:05] LABS: Troponin 5 2HR Delta 0.00001 ABS# (0-10)
[2024-10-11 10:20] VITALS: BP 116/70; PULSE 80; O2SAT 97
== END 2024-10-11 10:21 | disposition home or self-care (01) ==
PROVIDERS: Emergency Provider Family Medicine; PCP Family Medicine
DX: R07.89 Other chest pain (principal); F17.210 Nicotine dependence, cigarettes, uncomplicated; I10 Essential (primary) hypertension
CPT/HCPCS: 36415; 71045; 80053; 84484; 85025; 93005; 99285